=== PATIENT | male | born 1955 | race Caucasian/White ===

== ENCOUNTER → 2016-09-12 | Outpatient (CLI) | payer OTHER ==
[2016-09-12 10:16] LABS: MEAN CORPUSCULAR HEMOGLOBIN 26.9 pg (27.0-33.0); MEAN CORPUSCULAR HGB CONC 31.8 g/dl (32.0-36.5); MEAN CORPUSCULAR VOLUME 84.5 fl (80.0-96.0); RED CELL DISTRIBUTION WIDTH 12.9 % (11.5-14.5); WHITE BLOOD COUNT 6.4 K/mm3 (4.0-10.0)
[2016-09-12 10:59] LABS: ALBUMIN 3.6 GM/DL (3.2-5.2); ALBUMIN/GLOBULIN RATIO 1.29 (1.00-1.93); ALKALINE PHOSPHATASE 60 U/L (45-117); ALT/SGPT 27 U/L (12-78); ANION GAP 6 MEQ/L (8-16); AST/SGOT 10 U/L (15-37); BILIRUBIN,TOTAL 0.3 MG/DL (0.2-1.0); BLOOD UREA NITROGEN 17 MG/DL (7-18); CALCIUM LEVEL 8.6 MG/DL (8.8-10.2); CARBON DIOXIDE LEVEL 27 MEQ/L (21-32); CHLORIDE LEVEL 108 MEQ/L (98-107); CHOLESTEROL LEVEL 179 MG/DL (<200); CREATININE FOR GFR 0.91 MG/DL (0.70-1.30); GLOMERULAR FILTRATION RATE > 60.0 (>49); GLUCOSE, FASTING 110 MG/DL (80-110); POTASSIUM SERUM 4.7 MEQ/L (3.5-5.1); SODIUM LEVEL 141 MEQ/L (136-145); TOTAL PROTEIN 6.4 GM/DL (6.4-8.2); TRIGLYCERIDES LEVEL 89 MG/DL (<150)
--- NOTE | 2016-09-12 11:10 | REP ---
PA and lateral chest: Comparisons 09/04/2015. The lung liu are clear. The cardiac size is normal The marcelino, mediastinum, and bony thorax are unremarkable. Impression: Negative PA and lateral chest. There is no interval change. Signed by Lai Blue MD 09/12/2016 11:02 A
--- NOTE | 2016-09-12 17:12 | ECGEPIP ---
Stationary ECG Study [facility] Test Date: 2016-09-12 Pat Name: GIOVANI JAMES Department: Room: - Gender: M Flight Hostess: FAVIOLA : 1955 Requested By: Patel Thurston Order Number: [id number] Reading MD: Arthur Garcia Measurements Intervals Smock Rate: 58 P: 20 NH: 199 QRS: 50 QRSD: 114 T: 48 QT: 377 QTc: 372 Interpretive Statements SINUS BRADYCARDIA MODERATE INTRAVENTRICULAR CONDUCTION DELAY Nonspecific ST abnormalities Electronically Signed On 09-12-2016 17:11:45 EDT by Arthur Garcia
== END ==
LOC: M LAB 09:46
PROVIDERS: ATTEND Family Medicine
DX: I10 Essential (primary) hypertension (principal)

== ENCOUNTER 2016-10-12 06:37 | Inpatient (IN) | payer OTHER ==
[~2016-10-12] VITALS: Ht 180.3 cm; Wt 95.0 kg
[2016-10-12] MEDS ORDERED: LISI10TA4 PO (07:00)
[2016-10-12] MEDS ORDERED: HYDR-3716 PO (07:00)
[2016-10-12] MEDS ORDERED: OMEP20CA3 PO (07:00)
[2016-10-12] MEDS ORDERED: CLEO300C2 PO (07:00)
[2016-10-12] MEDS ORDERED: PANTOPRAZOLE 40MG INJ (PROTONIX) (C9113) IV ONE (07:15)
[2016-10-12] MEDS ORDERED: KETOROLAC 30 MG/ML VIAL (J1885) IV ONE (07:15)
[2016-10-12] MEDS ORDERED: dexameTHASONE 20 MG/5 ML VIAL (J1100) IV ONE (07:15)
[2016-10-12] MEDS ORDERED: CLINDAMYCIN 600 MG in APPROPRIATE DILUENT 1 EA IV ONE (07:30)
[2016-10-12] MEDS: MORPHINE 2 MG/ML 1ML SYRINGE IV PRN ×2 (07:37→15:47)
[2016-10-12 07:50] LABS: BASO % 0.1 % (0.0-1.0); EOS % 0.5 % (0.0-3.0); LARGE UNSTAINED CELL # 0.3 K/mm3 (0.0-0.4); LARGE UNSTAINED CELL % 2.6 % (0.0-4.0); LYMPH # 0.5 K/mm3 (1.5-4.5); LYMPH % 4.8 % (24.0-44.0); MEAN CORPUSCULAR HEMOGLOBIN 28.1 pg (27.0-33.0); MEAN CORPUSCULAR HGB CONC 32.5 g/dl (32.0-36.5); MEAN CORPUSCULAR VOLUME 86.7 fl (80.0-96.0); MONO % 9.9 % (0.0-5.0); NEUTROPHILS % 82.1 % (36.0-66.0); PLATELET COUNT, AUTOMATED 207 k/mm3 (150-450); RED CELL DISTRIBUTION WIDTH 13.1 % (11.5-14.5); WHITE BLOOD COUNT 9.7 K/mm3 (4.0-10.0)
[2016-10-12 08:06] LABS: ALBUMIN 3.2 GM/DL (3.2-5.2); ALBUMIN/GLOBULIN RATIO 1.03 (1.00-1.93); ALKALINE PHOSPHATASE 54 U/L (45-117); ALT/SGPT 31 U/L (12-78); ANION GAP 9 MEQ/L (8-16); AST/SGOT 18 U/L (15-37); BILIRUBIN,DIRECT 0.2 MG/DL (0.0-0.2); BILIRUBIN,TOTAL 0.5 MG/DL (0.2-1.0); BLOOD UREA NITROGEN 12 MG/DL (7-18); CALCIUM LEVEL 8.8 MG/DL (8.8-10.2); CARBON DIOXIDE LEVEL 26 MEQ/L (21-32); CHLORIDE LEVEL 104 MEQ/L (98-107); CREATININE FOR GFR 0.94 MG/DL (0.70-1.30); GLOMERULAR FILTRATION RATE > 60.0 (>49); GLUCOSE, FASTING 117 MG/DL (80-110); SODIUM LEVEL 139 MEQ/L (136-145); TOTAL PROTEIN 6.3 GM/DL (6.4-8.2)
[2016-10-12] MEDS ORDERED: ISOVUE-370 76% 100ML VIAL (Q9967) As Ordered ONE (08:31)
[2016-10-12] MEDS ORDERED: ACETAMINOPHEN 325 MG TAB PO ONE (08:45)
--- NOTE | 2016-10-12 09:38 | REP ---
Clinical: Right-sided swelling and pain. Technique: Axial contrast enhanced images from the skull base to the thoracic inlet using 100 ml Isovue 370 intravenous contrast material with coronal and sagittal re-formations. Findings: Right-sided subcutaneous infiltration and swelling is appreciated. There is moderate to significant right oropharyngeal and parapharyngeal inflammatory swelling and infiltration including adenoid and tonsillar swelling. There is mild to moderate mass effect on the airway which otherwise remains patent. No obvious abscess or drainable collection is appreciated. However evaluation is considerably limited due to metallic streak artifact from dental amalgam. Associated right-sided adenopathy is appreciated with lymph nodes in the jugular chain measuring up to 2.1 cm. The orbits are symmetric and normal. The sinuses are clear. The skeletal structures are intact. Impression: Moderate to significant right sided oropharyngeal and parapharyngeal inflammatory changes including mass effect on the airway which remains patent. No obvious abscess or fluid collection is identified, but evaluation is somewhat limited due to significant metallic streak artifact. Signed by Moise Brown MD 10/12/2016 09:30 A
[2016-10-12] MEDS ORDERED: BACT800T5 PO (10:07)
[2016-10-12] MEDS ORDERED: MORPHINE 2 MG/ML 1ML SYRINGE IV PRN (11:30)
[2016-10-12] MEDS ORDERED: LORazepam 2 MG TAB PO PRN (11:30)
[2016-10-12] MEDS ORDERED: ONDANSETRON 4MG/2ML VIAL (J2405) IV PRN (11:30)
[2016-10-12] MEDS ORDERED: IPRATROPIUM 0.02% SOLN 0.5MG/2.5 ML NEB INH PRN (11:30)
--- NOTE | 2016-10-12 12:07 | REP ---
Clinical: congestion. Comparison: 09/12/2016 . Technique: PA and lateral. Findings: The mediastinum and cardiac silhouette are normal. The lung liu are clear and without acute consolidation, effusion, or pneumothorax. The skeletal structures are intact and normal. Impression: 1. No acute cardiopulmonary process. Signed by Moise Brown MD 10/12/2016 11:59 A
[2016-10-12] MEDS: ALBUTEROL SULFATE 2.5 MG/0.5 ML INH NEB SOLN INH SCH ×4 (12:11→23:59)
--- NOTE | 2016-10-12 12:11 | REP ---
Clinical: Right lower mandibular cellulitis. Technique: Two Panorex views. Findings: Examination is essentially normal. The mandible is intact. No cystic or osseous abnormalities are appreciated. The dentition is within normal limits Impression: Essentially normal Panorex views Signed by Moise Brown MD 10/12/2016 12:02 P
[2016-10-12] MEDS ORDERED: MULTIVITAMIN -ADULT INJECTION 10 ML, THIAMINE INJection 100 MG, FOLIC ACID 1 MG in NS 1... IV ONE (13:00)
[2016-10-12] MEDS ORDERED: LevoFLOXacin IV 500 MG in APPROPRIATE DILUENT 1 EA IV ONE (13:00)
[2016-10-12 13:50] VITALS: BP 137/70
[2016-10-12 14:00] VITALS: BP 137/70
[2016-10-12] MEDS: methylPREDNISolone INJ 125 MG/2 ML VIAL (J2930) IV SCH ×2 (14:28→21:50)
[2016-10-12 16:00] VITALS: BP 148/85
[2016-10-12] MEDS: CLINDAMYCIN 600 MG in APPROPRIATE DILUENT 1 EA IV SCH (16:14)
--- NOTE | 2016-10-12 16:37 | HPEPDOC ---
Medical History and Physical Date of Admission October 12, 2016 at 11:19 History and Physical PRIMARY CARE PROVIDER: Dr. Martins ATTENDING: Lita Ewing MD CHIEF COMPLAINT: Neck swelling HISTORY OF PRESENT ILLNESS: 61-year-old male past history of COPD, hypertension, prediabetes who presents with right facial swelling. Patient had apparently the patient for after which the right upper tooth broke. He has always dentist on Thursday who prescribed him clindamycin however patient has not started this and sotalol . Patient was told he may need a root canal. Prior to this, patient's had no specific upper respiratory tract symptoms/sore throat for which she was placed on Z-Ernie and completed. Patient was placed of fevers or chills. No nausea/vomiting. Patient denies any shortness of breath. Patient states he's able to clear his secretions. He has spoken with Dr. Preciado who will be seeing the patient on consultation. PAST MEDICAL HISTORY: As per HPI PAST SURGICAL HISTORY:Tonsillectomy SOCIAL HISTORY:H/o 1ppd tobacco abuse x 20 years, quit 11 years ago. Drinks 3-4 beers daily. No illicit drugs. FAMILY HISTORY: Non contributory ALLERGIES: Please see below. REVIEW OF SYSTEMS: HEENT: Denies sore throat/headache CARDIOVASCULAR: Denies chest pain/palpitations RESPIRATORY: Denies shortness of breath/cough GASTROINTESTINAL: denies nausea/vomiting GENITOURINARY: Denies dysuria/urinary urgency. MUSCULOSKELETAL: Denies myalgias/arthralgias NEUROLOGICAL: Denies any focal weakness HOME MEDICATIONS: Please see below. PHYSICAL EXAMINATION: Vitals: (see below) General: No acute distress, laying comfortably in bed. HEENT: Moist mucous membranes. Right facial swelling. Airway patent, although pt does have right post-pharyngeal swelling. No abscess or draining noted. Neck: No JVD or lymphadenopathy Cardiac: RRR, No murmurs Pulm: Clear to auscultation b/l. No wheezing, rhonchi Abd: NT/ND + BS Ext: No edema or cyanosis LABORATORY DATA: See below. IMAGING: CT Neck 10/12/16 Impression: Moderate to significant right sided oropharyngeal and parapharyngeal inflammatory changes including mass effect on the airway which remains patent. No obvious abscess or fluid collection is identified, but evaluation is somewhat limited due to significant metallic streak artifact. CXR negative for acute pulm dz. MICROBIOLOGY: Please see below. ASSESSMENT/PLAN: 1. Moderate to significant right sided oropharyngeal and parapharyngeal swelling. Improved with IV antibiotics and steroids. Patient will be continued on IV clindamycin. Patient also placed on IV Levaquin as he does have a significant history of alcohol use. Continue steroids. We'll continue to monitor closely in PCU. Oral surgeon has been consulted. 2. COPD- stable. Continue nebs 3. Hypertension- controlled 4. Prediabetes 5. Alcohol use- cessation counseling. WA protocol. Banana bag. DVT prophy - enoxaparin. Vital Signs Vital Signs Date Time Temp Pulse Resp B/P (MAP) Pulse Ox O2 Delivery O2 Flow Rate FiO2 10/12/16 16:00 98.3 91 12 148/85 (106) 99 Room Air Laboratory Data Labs 24H Laboratory Tests 2 10/12/16 07:29: White Blood Count 9.7, Red Blood Count 4.88, Hemoglobin 13.7L, Hematocrit 42.3, Mean Corpuscular Volume 86.7, Mean Corpuscular Hemoglobin 28.1, Mean Corpuscular Hemoglobin Concent 32.5, Red Cell Distribution Width 13.1, Platelet Count 207, Neutrophils (%) (Auto) 82.1H, Lymphocytes (%) (Auto) 4.8L, Monocytes (%) (Auto) 9.9H, Eosinophils (%) (Auto) 0.5, Basophils (%) (Auto) 0.1, Neutrophils # (Auto) 8.0H, Lymphocytes # (Auto) 0.5L, Monocytes # (Auto) 1.0H, Eosinophils # (Auto) 0.0, Basophils # (Auto) 0.0, Large Unclassified Cells % 2.6 , Large Unclassified Cells # 0.3, Anion Gap 9, Glomerular Filtration Rate > 60.0 , Calcium Level 8.8, Aspartate Amino Transf (AST/SGOT) 18, Alanine Aminotransferase (ALT/SGPT) 31, Alkaline Phosphatase 54, Total Bilirubin 0.5, Direct Bilirubin 0.2, Total Protein 6.3L, Albumin 3.2, Albumin/Globulin Ratio 1.03 CBC/BMP Laboratory Tests 10/12/16 07:29 Red Blood Count 4.88, Mean Corpuscular Volume 86.7, Mean Corpuscular Hemoglobin 28.1, Mean Corpuscular Hemoglobin Concent 32.5, Red Cell Distribution Width 13.1 , Neutrophils (%) (Auto) 82.1 H, Lymphocytes (%) (Auto) 4.8 L, Monocytes (%) ( Auto) 9.9 H, Eosinophils (%) (Auto) 0.5, Basophils (%) (Auto) 0.1, Neutrophils # (Auto) 8.0 H, Lymphocytes # (Auto) 0.5 L, Monocytes # (Auto) 1.0 H, Eosinophils # (Auto) 0.0, Basophils # (Auto) 0.0 Microbiology Microbiology 10/12/16 Blood Culture, Received Pending 10/12/16 Blood Culture, Received Pending Home Medications Scheduled Clindamycin Hcl (Cleocin) 300 Mg Cap, 300 MG PO Q6H STARTED 10/09 FOR 7 DAYS Lisinopril (Lisinopril) 10 Mg Tab, 10 MG PO DAILY Omeprazole (Omeprazole) 20 Mg Cap, 20 MG PO DAILY Scheduled PRN Acetaminophen/Hydrocodone (Hydrocodone/Acetaminophen 7.5-325 mg) 1 Tab Tab, 1 TAB PO Q4H PRN for PAIN Allergies Coded Allergies: Amoxicillin (Verified Allergy, Unknown, 10/12/16) Cefuroxime (Verified Allergy, Unknown, 10/12/16) Clavulanic Acid (Verified Allergy, Unknown, 10/12/16) Penicillins (Verified Allergy, Unknown, 10/12/16) LITA EWING MD October 12, 2016 16:37
[2016-10-12] MEDS: KETOROLAC 30 MG/ML VIAL (J1885) IV SCH (18:01)
[2016-10-12] MEDS ORDERED: BISACODYL 10 MG SUPP PR PRN (19:00)
[2016-10-12 20:00] VITALS: BP 137/83
[2016-10-12] MEDS: MORPHINE 4 MG/ML 1ML SYRINGE IV PRN ×2 (20:18→20:50)
[2016-10-12] MEDS ORDERED: LORazepam 2 MG/ML VIAL (J2060) IV PRN (20:45)
[2016-10-12] MEDS ORDERED: ACETAMINOPHEN 650 MG SUPP PR ONE (21:30)
[2016-10-12] MEDS ORDERED: ACETAMINOPHEN 650 MG SUPP PR PRN (21:30)
[2016-10-12] MEDS: ENOXAPARIN 40 MG/0.4 ML SYRINGE (J1650) SC SCH (21:51)
[2016-10-13] VITALS (11 sets, daily range): BP systolic 112–142; BP diastolic 64–82
[2016-10-13] MEDS: KETOROLAC 30 MG/ML VIAL (J1885) IV SCH ×4 (00:07→18:00)
[2016-10-13] MEDS: methylPREDNISolone INJ 125 MG/2 ML VIAL (J2930) IV SCH ×2 (03:20→08:21)
[2016-10-13] MEDS: ALBUTEROL SULFATE 2.5 MG/0.5 ML INH NEB SOLN INH SCH ×5 (03:29→20:07)
[2016-10-13] MEDS: MORPHINE 4 MG/ML 1ML SYRINGE IV PRN ×3 (03:34→11:36)
[2016-10-13] MEDS ORDERED: LIDOCAINE W/EPINEPHRINE 1% 20ML VIAL As Ordered ONE (07:36)
[2016-10-13] MEDS: CLINDAMYCIN 600 MG in APPROPRIATE DILUENT 1 EA IV SCH ×5 (08:21→21:40)
[2016-10-13] MEDS ORDERED: LevoFLOXacin IV 500 MG in APPROPRIATE DILUENT 1 EA IV SCH (09:00)
[2016-10-13] MEDS ORDERED: MIDAZOLAM INJ 2 MG/2 ML VIAL (J2250) As Ordered ONE (13:58)
[2016-10-13] MEDS ORDERED: fentaNYL 100 MCG/2 ML INJECTION (J3010) As Ordered ONE ×2 (13:58→14:37)
[2016-10-13] MEDS ORDERED: LIDOCAINE 2% W/ EPINEPHRINE 1.7 ML DENTAL INJ As Ordered ONE (14:16)
[2016-10-13] MEDS ORDERED: PROPOFOL 200 MG/20 ML VIAL As Ordered ONE (14:37)
[2016-10-13] MEDS ORDERED: SUCCINYLCHOLINE 100 MG/5 ML SYRINGE (J0330) As Ordered ONE (14:39)
[2016-10-13] MEDS ORDERED: dexameTHASONE 4 MG/ML 1ML VIAL (J1100) As Ordered ONE (14:39)
[2016-10-13] MEDS ORDERED: ONDANSETRON 4MG/2ML VIAL (J2405) As Ordered ONE (14:39)
[2016-10-13] MEDS ORDERED: ROCURONIUM BROMIDE 50 MG/5 ML VIAL As Ordered ONE (14:39)
[2016-10-13] MEDS ORDERED: fentaNYL 100 MCG/2 ML INJECTION (J3010) IV PRN (15:15)
[2016-10-13] MEDS ORDERED: ONDANSETRON 4MG/2ML VIAL (J2405) IV PRN (15:15)
[2016-10-13] MEDS ORDERED: METOCLOPRAMIDE INJ 10MG/2ML VIAL (J2765) IV PRN (15:15)
[2016-10-13] MEDS ORDERED: PERCOCET 5MG/325MG TAB PO PRN (15:15)
[2016-10-13] MEDS ORDERED: MORPHINE 2 MG/ML 1ML SYRINGE IV PRN (15:15)
[2016-10-13] MEDS ORDERED: LR 1,000 ML IV SCH (15:15)
--- NOTE | 2016-10-13 15:52 | IPNPDOC ---
Text Note Date of Service The patient was seen on 10/13/16. NOTE Subjective: Pt states swelling is improving. PHYSICAL EXAMINATION: Vitals: (see below) General: No acute distress, laying comfortably in bed. HEENT: Moist mucous membranes. Right facial swelling. Airway patent, although pt does have right post-pharyngeal swelling. No abscess or draining noted. Neck: No JVD or lymphadenopathy Cardiac: RRR, No murmurs Pulm: Clear to auscultation b/l. No wheezing, rhonchi Abd: NT/ND + BS Ext: No edema or cyanosis LABORATORY DATA: See below. IMAGING: CT Neck 10/12/16 Impression: Moderate to significant right sided oropharyngeal and parapharyngeal inflammatory changes including mass effect on the airway which remains patent. No obvious abscess or fluid collection is identified, but evaluation is somewhat limited due to significant metallic streak artifact. CXR negative for acute pulm dz. MICROBIOLOGY: Please see below. ASSESSMENT/PLAN: 1. Right Mandibular abscess s/p extraction tooth #31. Moderate to significant right sided oropharyngeal and parapharyngeal swelling. Improved with IV antibiotics and steroids. Airway patent. Patient will be continued on IV clindamycin. Continue steroids. We'll continue to monitor closely in PCU. Oral surgeon on board. 2. COPD- stable. Continue nebs 3. Hypertension- controlled 4. Prediabetes 5. Alcohol use- cessation counseling. WA protocol. s/p banana bag Cont to closely monitor in PCU. VS,Fishbone, I+O VS, Fishbone, I+O Vital Signs Date Time Temp Pulse Resp B/P (MAP) Pulse Ox O2 Delivery O2 Flow Rate FiO2 10/13/16 15:40 97.5 76 16 115/66 (82) 97 Room Air 10/13/16 15:30 2 I&O- Last 24 Hours up to 6 AM 10/13/16 05:59 Intake Total 880 ml Output Total 300 ml Balance 580 ml LITA WANG MD October 13, 2016 15:52
[2016-10-13] MEDS: LR 1,000 ML IV SCH (17:01)
--- NOTE | 2016-10-13 19:31 | RO ---
DATE OF PROCEDURE: 10/13/2016 PREOPERATIVE DIAGNOSIS: Right mandibular abscess. POSTOPERATIVE DIAGNOSIS: Right mandibular abscess. PROCEDURE: Extraction of tooth 31. SURGEON: Rene Monsivais DMD RN FACULTY: ANESTHESIA: ESTIMATED BLOOD LOSS: 5 mL. SPECIMENS: Teeth COMPLICATIONS: None. The rest of the this dictation will be completed in [facility]
[2016-10-13] MEDS: ENOXAPARIN 40 MG/0.4 ML SYRINGE (J1650) SC SCH (20:52)
[2016-10-14] VITALS (7 sets, daily range): BP systolic 112–133; BP diastolic 68–74
[2016-10-14] MEDS: KETOROLAC 30 MG/ML VIAL (J1885) IV SCH ×5 (00:09→23:37)
[2016-10-14] MEDS: HYDROmorphone 2 MG TAB PO PRN ×6 (02:50→22:37)
[2016-10-14] MEDS: LR 1,000 ML IV SCH ×3 (02:51→21:36)
[2016-10-14] MEDS: CLINDAMYCIN 600 MG in APPROPRIATE DILUENT 1 EA IV SCH ×4 (03:00→21:36)
[2016-10-14] MEDS: ALBUTEROL SULFATE 2.5 MG/0.5 ML INH NEB SOLN INH SCH ×8 (04:00→23:11)
[2016-10-14] MEDS: MORPHINE 4 MG/ML 1ML SYRINGE IV PRN ×4 (10:21→23:51)
--- NOTE | 2016-10-14 16:07 | IPN ---
DATE: 10/14/2016 SUBJECTIVE: Patient is seen and examined in the room today. Patient stated he still feels discomfort at the right face. He feels there is some drainage from the previous abscess site. But he is able to tolerate oral liquids well without any problem and patient has no difficulty breathing. Patient tolerated the tooth extraction well. OBJECTIVE: VITAL SIGNS: Temperature 99.3, pulse 81, respiration rate 20, blood pressure 112/68, pulse oximetry 94% in room air. GENERAL: No sign of acute distress. Alert and oriented times three. HEENT: Normocephalic, atraumatic. Extraocular motors grossly intact. CARDIOVASCULAR: Positive S1, S2, regular rate. LUNGS: Clear to auscultation bilaterally. ABDOMEN: Soft, nontender, nondistended. Bowel sounds present. No rebound. No guarding. EXTREMITIES: No edema. No sign of cyanosis. C-reactive protein is 18.1. Dental abscess culture is pending. ASSESSMENT AND PLAN: 1. Right mandibular abscess status post tooth extraction. Culture is pending. Patient is on IV clindamycin and IV steroids. Patient's airway is patent and patient is tolerating a liquid diet. We appreciate further input from the oral surgeon. 2. Chronic obstructive pulmonary disease (COPD). Currently patient does not require any oxygen support. No exacerbation. Continue nebulizers as needed. 3. Hypertension. Blood pressure in satisfactory range. 4. History of alcohol use. Patient is on thiamine, folic acid, and multivitamin. Patient has Ativan as needed. 5. Deep venous thrombosis (DVT) prophylaxis. Patient is on Lovenox.
[2016-10-14] MEDS: THIAMINE 100 MG TAB PO SCH (16:27)
[2016-10-14] MEDS: MULTIVITAMINS/MINERALS THERAP 1 TAB PO SCH (16:28)
[2016-10-14] MEDS: FOLIC ACID 1 MG TAB PO SCH (16:28)
[2016-10-14] MEDS: ENOXAPARIN 40 MG/0.4 ML SYRINGE (J1650) SC SCH (21:35)
[2016-10-15] VITALS: BP 172/96
[2016-10-15] MEDS ORDERED: ACETAMINOPHEN TAB 650MG DOSE (2X325MG) PO PRN (00:15)
[2016-10-15] MEDS: methylPREDNISolone INJ 125 MG/2 ML VIAL (J2930) IV SCH ×3 (00:20→12:25)
[2016-10-15] MEDS: MORPHINE 4 MG/ML 1ML SYRINGE IV PRN (03:25)
[2016-10-15 04:00] VITALS: BP 135/84
[2016-10-15] MEDS: CLINDAMYCIN 600 MG in APPROPRIATE DILUENT 1 EA IV SCH ×2 (04:11→10:04)
[2016-10-15] MEDS: HYDROmorphone 2 MG TAB PO PRN (04:50)
[2016-10-15] MEDS: KETOROLAC 30 MG/ML VIAL (J1885) IV SCH ×2 (05:52→12:25)
[2016-10-15 07:28] LABS: MEAN CORPUSCULAR HEMOGLOBIN 27.2 pg (27.0-33.0); MEAN CORPUSCULAR HGB CONC 31.4 g/dl (32.0-36.5); MEAN CORPUSCULAR VOLUME 86.5 fl (80.0-96.0); RED CELL DISTRIBUTION WIDTH 13.4 % (11.5-14.5); WHITE BLOOD COUNT 13.9 K/mm3 (4.0-10.0)
[2016-10-15 07:45] LABS: ANION GAP 8 MEQ/L (8-16); BLOOD UREA NITROGEN 18 MG/DL (7-18); CALCIUM LEVEL 8.8 MG/DL (8.8-10.2); CARBON DIOXIDE LEVEL 26 MEQ/L (21-32); CHLORIDE LEVEL 105 MEQ/L (98-107); CREATININE FOR GFR 0.68 MG/DL (0.70-1.30); GLOMERULAR FILTRATION RATE > 60.0 (>49); GLUCOSE, FASTING 165 MG/DL (80-110); POTASSIUM SERUM 4.5 MEQ/L (3.5-5.1); SODIUM LEVEL 139 MEQ/L (136-145)
[2016-10-15 08:00] VITALS: BP_SYST 131; BP_SYST 156; BP_DIAS 77; BP_DIAS 79
[2016-10-15] MEDS: ALBUTEROL SULFATE 2.5 MG/0.5 ML INH NEB SOLN INH SCH ×2 (09:01→11:56)
[2016-10-15] MEDS: FOLIC ACID 1 MG TAB PO SCH (09:19)
[2016-10-15] MEDS: MULTIVITAMINS/MINERALS THERAP 1 TAB PO SCH (09:20)
[2016-10-15] MEDS: THIAMINE 100 MG TAB PO SCH (09:20)
[2016-10-15] MEDS: LR 1,000 ML IV SCH (10:03)
[2016-10-15] MEDS ORDERED: ACET65TA PO (10:36)
[2016-10-15] MEDS ORDERED: PERC10TA17 PO (10:36)
[2016-10-15] MEDS ORDERED: CLEO300C2 PO (10:36)
[2016-10-15 12:00] VITALS: BP 130/90
--- NOTE | 2016-10-15 17:10 | DSES ---
DATE OF ADMISSION: 10/12/2016 DATE OF DISCHARGE: 10/15/2016 PRIMARY CARE PROVIDER: Dr. Bertrand Martins CONSULTANTS: Oral surgery, Dr. Rene Monsivais PROCEDURES: Tooth #13 extraction. ADMISSION/DISCHARGE DIAGNOSES: 1. Right mandibular abscess. 2. Chronic obstructive pulmonary disease. 3. Hypertension. 4. History of alcohol abuse. HOSPITALIZATION COURSE: The patient is a 61-year-old male who presented to [facility] on 10/12/2016 for neck swelling. The patient started having worsening right facial swelling after his right upper tooth breakage. CT of the neck with contrast was performed and oral surgery, Dr. Monsivais, was consulted. Empirically, the patient was started on IV clindamycin. On 10/13/2016, the patient had a tooth extraction with the diagnosis of right mandibular abscess. After the procedure, the patient remained in the progressive care unit (PCU) for monitoring. Later, the patient is able to maintain a patent airway and the patient is also able to tolerate a liquid diet, then the patient is downgraded to the medical/surgical floor for pain control. The patient is also being followed by Dr. Monsivais and later is cleared by Dr. Monsivais for discharge with recommendation to continue clindamycin. On 10/15/2016, the patient is discharged home with a supply of clindamycin and short-term pain medications. The patient is instructed to followup with Dr. Monsivais within one week and the patient is instructed to followup with primary care provider within one week. OBJECTIVE: VITAL SIGNS: Temperature 97.4, pulse is 57, respiratory rate 16, blood pressure is 131/79, pulse oximetry is 96% on room air. LABORATORY DATA: WBC is 13.9, hemoglobin 11.7, hematocrit 37.4, platelet count is 282. Sodium is 139, potassium 4.5, chloride is 105, carbon dioxide 26, BUN 18, creatinine 0.68, GFR greater than 60, fasting glucose 165, calcium is 8.8, C-reactive protein is 15.3. Blood cultures negative after 72 hours times two sets. Abscess cultures show normal asuncion present, anaerobe cultures pending. CT of the neck with contrast shows moderate to significant right-sided oropharyngeal and parapharyngeal inflammatory changes including mass effect of the airway which remains patent. No obvious abscess or fluid collection is identified but evaluation is somewhat limited due to significant metallic streak artifact. Chest x-ray shows no acute cardiopulmonary processes. DISCHARGE MEDICATIONS: - Tylenol 650 mg by mouth every four hours as needed for seven days - Percocet 10/325 mg one tablet by mouth every four hours as needed for severe pain, five-day course was given, maximum daily dosage is six, #30 pills given - clindamycin 300 mg by mouth every six hours for seven more days - lisinopril 10 mg by mouth daily - omeprazole 20 mg by mouth daily DISCHARGE INSTRUCTIONS: Discharge home. Activity as tolerated. Diet as tolerated. The patient should followup with Dr. Monsivais within one week. The patient should followup with Dr. Bertrand Martins within one week. DISCHARGE CONDITION: Stable. DISCHARGE TIME: Greater than 30 minutes.
== END 2016-10-15 12:55 | disposition home or self-care (01) | DRG 159 ==
LOC: M ED 07:22 → M ED INP 11:19 → M PCU 13:50 → M PED 10-14 12:33
PROVIDERS: ADMIT Internal Medicine; ATTEND Internal Medicine
PROC: 0CTW0Z0 Resection of Upper Tooth, Single, Open Approach (ICD-10-PCS; principal; 2016-10-13 08:00)
DX: K12.2 Cellulitis and abscess of mouth (principal); J44.9 Chronic obstructive pulmonary disease, unspecified; I10 Essential (primary) hypertension; Z79.899 Other long term (current) drug therapy; Z87.891 Personal history of nicotine dependence; F10.10 Alcohol abuse, uncomplicated; Z88.0 Allergy status to penicillin; Z88.8 Allergy status to other drugs, medicaments and biological substances

== ENCOUNTER 2016-10-18 10:05 | Emergency (ER) | payer OTHER ==
[~2016-10-18] VITALS: Ht 180.3 cm; Wt 96.2 kg
[~2016-10-18 10:05] MED LIST: ACET65TA PO; BACT800T5 PO; CLEO300C2 PO; HYDR-3716 PO; LISI10TA4 PO; OMEP20CA3 PO; PERC10TA17 PO
[2016-10-18] MEDS ORDERED: methylPREDNISolone INJ 125 MG/2 ML VIAL (J2930) IV ONE (10:30)
[2016-10-18] MEDS ORDERED: cefTRIAXone SOD 1 GM in D5W MINI-BAG PLUS 50 ML IV ONE (10:30)
--- NOTE | 2016-10-18 10:32 | ED PDOC ---
Post-Departure Follow-Up PT AND PRESENT TO THE ED TODAY STATING THE PT WAS HAVING SOME DENTAL PAIN LAST WEEK AND WAS SEEN IN THE ED FOR THIS. HE WAS ADMITTED AT THAT TIME (10/12/16 ), HAD A TOOTH PULLED (BY DR. BLANDON) AND "INSURANCE WOULDN'T COVER IT ANYMORE SO I WAS DISCHARGED ON 10/15/16. STATES THAT NIGHT AND LAST NIGHT, HIS PAIN WAS WORSE AND HE WAS SEEN BY HIS PCP, DR. ZAPIEN, IN THE OFFICE YESTERDAY AND HAD ROCEPHIN 1GRAM IM. HE STATES TODAY IS HE FEELING BETTER AND HAS A PRESCRIPTION WITH HIM AND THE BOTTLE OF ROCEPHIN STATING HE WAS TOLD TO HAVE 4 DAYS OF ROCEPHIN 1GRAM IM AND DR. PATEL IS FOLLOWING UP WITH HIM IN THE OFFICE ON THURSDAY , 10/21/16PT STATES HE IS FEELING MUCH BETTER TODAY THAN HE WAS YESTERDAY PRIOR TO THE INJECTION. PT DENIES DIFFICULTY SWALLOWING AT THIS TIME. RNOIT CLINE PA-C October 18, 2016 10:32
[2016-10-18 11:34] VITALS: BP 137/84
== END 2016-10-18 11:35 | disposition home or self-care (01) ==
LOC: M ED 10:22
DX: L03.90 Cellulitis, unspecified (principal); I10 Essential (primary) hypertension; Z87.891 Personal history of nicotine dependence; Z79.899 Other long term (current) drug therapy; Z88.0 Allergy status to penicillin; Z88.8 Allergy status to other drugs, medicaments and biological substances; Z88.1 Allergy status to other antibiotic agents
CPT/HCPCS: 96374; 96375; 99283; J0696; J2930

== ENCOUNTER 2016-10-19 10:35 | Emergency (ER) | payer OTHER ==
[~2016-10-19] VITALS: Ht 180.3 cm; Wt 95.3 kg
[2016-10-19] MEDS ORDERED: cefTRIAXone SOD 1 GM VIAL (J0696) IM ONE (11:15)
[2016-10-19 11:55] VITALS: BP 133/72
[2016-10-20] MEDS ORDERED: IBUP600T26 PO (03:01)
[2016-10-20] MEDS ORDERED: CLEO300C2 PO (07:46)
[2016-10-20] MEDS ORDERED: PERC10TA17 PO (07:46)
[2016-10-20] MEDS ORDERED: IBUP60TA PO (07:46)
== END 2016-10-19 11:58 | disposition home or self-care (01) ==
LOC: M ED 11:15
DX: K04.7 Periapical abscess without sinus (principal); Z88.0 Allergy status to penicillin; Z88.8 Allergy status to other drugs, medicaments and biological substances; Z88.1 Allergy status to other antibiotic agents; Z79.899 Other long term (current) drug therapy
CPT/HCPCS: 96372; 99282; J0696

== ENCOUNTER 2016-10-20 02:49 | Inpatient (IN) | payer OTHER ==
[~2016-10-20] VITALS: Ht 180.3 cm; Wt 79.9 kg
[2016-10-20] MEDS ORDERED: IBUP600T26 PO (03:01)
[2016-10-20] MEDS ORDERED: CETACAINE SPRAY 20GM (FLOOR STOCK) TOP ONE (03:30)
[2016-10-20] MEDS ORDERED: BUPIVACAINE/EPIN 0.5% 30 ML VIAL XX ONE (03:30)
[2016-10-20] MEDS ORDERED: BUPIVACAINE HCL 0.5% 30 ML VIAL SC ONE (03:45)
[2016-10-20] MEDS ORDERED: LIDOCAINE W/EPINEPHRINE 1% 20ML VIAL SC ONE ×2 (03:45→08:15)
[2016-10-20] MEDS ORDERED: CLINDAMYCIN 900 MG in APPROPRIATE DILUENT 1 EA IV ONE (04:00)
[2016-10-20] MEDS ORDERED: HYDROmorphone HCL 1 MG/ML SYRINGE (J1170) IV ONE (04:00)
[2016-10-20 04:23] LABS: BASO % 0.3 % (0.0-1.0); EOS # 0.1 K/mm3 (0.0-0.50); EOS % 0.7 % (0.0-3.0); LARGE UNSTAINED CELL # 0.2 K/mm3 (0.0-0.4); LARGE UNSTAINED CELL % 1.9 % (0.0-4.0); LYMPH # 1.9 K/mm3 (1.5-4.5); LYMPH % 15.4 % (24.0-44.0); MEAN CORPUSCULAR HGB CONC 31.4 g/dl (32.0-36.5); MEAN CORPUSCULAR VOLUME 86.1 fl (80.0-96.0); MONO # 0.7 K/mm3 (0.0-0.8); MONO % 6.4 % (0.0-5.0); NEUTROPHILS # 8.3 K/mm3 (1.8-7.7); NEUTROPHILS % 75.4 % (36.0-66.0); PLATELET COUNT, AUTOMATED 428 k/mm3 (150-450); RED CELL DISTRIBUTION WIDTH 13.4 % (11.5-14.5)
[2016-10-20 04:30] LABS: INR 1.03
[2016-10-20 04:37] LABS: ANION GAP 6 MEQ/L (8-16); BLOOD UREA NITROGEN 13 MG/DL (7-18); CALCIUM LEVEL 8.4 MG/DL (8.8-10.2); CARBON DIOXIDE LEVEL 28 MEQ/L (21-32); CHLORIDE LEVEL 108 MEQ/L (98-107); CREATININE FOR GFR 0.75 MG/DL (0.70-1.30); GLOMERULAR FILTRATION RATE > 60.0 (>49); GLUCOSE, FASTING 107 MG/DL (80-110); POTASSIUM SERUM 4.2 MEQ/L (3.5-5.1); SODIUM LEVEL 142 MEQ/L (136-145)
[2016-10-20] MEDS ORDERED: ISOVUE-370 76% 100ML VIAL (Q9967) As Ordered ONE (04:40)
--- NOTE | 2016-10-20 05:50 | REPUSA ---
CLINICAL HISTORY: Suspected abscess formation. TECHNIQUE: Multiple axial CT images were obtained through the neck with IV contrast material. MPR cor onal and sagittal sequences were obtained. COMMENTS: Mild hypertrophy of the adenoids. Enlarged right palatine tonsil. Surrounding inflammatory soft tissue stranding. Adjacent 1.8 cm abscess formation. Soft tissue emphysema in the right pharyngeal space. Mildly enlarged right cervical lymph nodes with the largest measuring 1.3 cm. Inflammatory fat stranding surrounding the right submandibular gland. The piriform sinuses are normal. There is no supra or infraglottic laryngeal mass. The proximal trach ea is normal. There is no paravertebral soft tissue mass. The remaining salivary glands are normal. Limited images through the posterior fossa demonstrate no evidence for tonsilar herniation. Evaluation of the visualized lung apices reveals no evidence for abnormality. IMPRESSION: Tonsillitis. Right peritonsillar abscess formation. Soft tissue emphysema in the right parapharyngeal space. Recent intervention/incision versus gas-form ing infection. Edema and mass effect on the pharyngeal air passage without airway narrowing. Thank you for your kind referral of this patient.
[2016-10-20] MEDS ORDERED: dexameTHASONE 20 MG/5 ML VIAL (J1100) IV ONE (06:15)
[2016-10-20] MEDS ORDERED: CLEO300C2 PO (07:46)
[2016-10-20] MEDS ORDERED: IBUP60TA PO (07:46)
[2016-10-20] MEDS ORDERED: PERC10TA17 PO (07:46)
--- NOTE | 2016-10-20 08:08 | ER ---
DATE OF CONSULTATION: 10/20/2016 CHIEF COMPLAINT: Oropharyngeal pain. HISTORY OF PRESENT ILLNESS: Tera Keita is a 71-year-old man who was recently admitted to the hospital for dental abscess. During the hospitalization, patient had extraction of tooth #31. This was done on 10/13/2016. Patient was then discharged from the hospital on 10/15/2016. The patient states that since discharge, he has had fluctuating pain. He has pain when he swallows. He has been able to tolerate clear liquids but not much else. He has had a couple of chills but he has not had any fevers. Patient presented to his primary care physician on Thursday with pain. Patient was given an antibiotic injection and then advised to come into the emergency room on Thursday, Thursday and Thursday for additional injection of antibiotic. Patient did have his antibiotic injection on Thursday and Thursday, and today he states that the pain is becoming unbearable. He has intermittent drainage from his mouth which he is spitting into a cup. PAST MEDICAL HISTORY: Patient states that he has pre-diabetes and hypertension. PAST SURGICAL HISTORY: Patient has had the dental extraction as well as an adenotonsillectomy when he was a child. MEDICATIONS: Patient states that he is on antihypertensive at home. ALLERGIES: PENICILLIN. REVIEW OF SYSTEMS: As above, patient is not having any trouble breathing. No cough. PHYSICAL EXAMINATION: Temperature 97.1, pulse 54, respiratory rate 20, blood pressure 147/86. General: Patient is in no acute distress. Voice is normal. There is no stridor. Patient is not drooling. Head: Patient is normocephalic. Face: No gross facial lesions. Cranial nerves intact bilaterally. I do not appreciate any swelling of the right face on examination. Oral cavity/oropharynx: Patient is having mild trismus with an inter-incisor opening of almost 2 cm. The site of tooth extraction on the right mandible is not draining. Floor of mouth is soft. The right soft palate is markedly swollen. Neck: There is some mild submandibular swelling. It feels slightly indurated in this area. Otherwise there is no lymphadenopathy in the neck. No tenderness or masses. PROCEDURE: The right soft palate area was infiltrated with 1% lidocaine with epinephrine. An 18 gauge needle was used to attempt aspiration of any fluid collection. There was no return of any pus. I did return a very small amount of bloody fluid which was sent for culture. IMAGING: CT scan shows swelling and very early abscess formation in the right parapharyngeal area but no ryan abscess. ASSESSMENT AND PLAN: Tera Keita is a 61-year-old man status post dental extraction. He has had persistent parapharyngeal swelling and pain that has been difficult to control at home. I recommend admission for IV antibiotics, clindamycin would be appropriate choice. Patient will be admitted to the hospitalist for further management.
--- NOTE | 2016-10-20 09:39 | HPE ---
DATE OF ADMISSION: 10/20/2016 PRIMARY CARE PROVIDER: Dr. Bertrand Martins ATTENDING PHYSICIAN: Dr. Maury Hargrove PRINCIPAL DIAGNOSIS: Facial cellulitis/dental infection status post dental extraction. HISTORY: Tera Keita underwent extraction of tooth #[address] Ozzy Jurado of oral surgery on 10/13/2016 and was discharged on 10/15/2016 on clindamycin. He had increasing swelling on the right side of his face. He had a 1.8 cm right peritonsillar abscess on CT scan and underwent attempted aspiration by ENT, Dr. Quesada, today in the emergency room without return of any pus. CT scan shows swelling and early abscess formation. Recommendation was for admission for IV antibiotics. PAST MEDICAL HISTORY: Just shows hypertension, for which he is on Lisinopril 10 mg daily as an outpatient. He also takes omeprazole on an as needed basis. Past medical, social and surgical history are all unchanged from his recent admission from 10/12/2016. MEDICATIONS: - Lisinopril 10 mg daily - omeprazole 20 mg daily - clindamycin 300 mg four times a day PHYSICAL EXAMINATION: 134/78, pulse 60, respiratory rate 16, 98% oxygen saturation, 98.3 degrees. GENERAL APPEARANCE: Resting comfortably. Small right facial swelling. HEENT: Oropharynx shows right mandible extraction site with a socket that has some slightly blood tinged discharge. Right soft palate markedly swollen. Right submandibular adenopathy. No stridor. LUNGS: Clear. HEART: Regular rhythm. ABDOMEN: Soft, nontender. EXTREMITIES: No peripheral edema. Normal strength in the arms and legs. LABORATORY DATA: White count 11,000, hemoglobin 11.5. Electrolytes unremarkable. CT of the neck is summarized above. IMPRESSION AND PLAN: 1. Early right peritonsillar abscess/cellulitis. He has been seen by ENT. Recommendation was for admission to the hospitalist service. We will start IV clindamycin. Followup lab work has been ordered. 2. Hypertension. Continue Lisinopril. 3. Gastroesophageal reflux disease (GERD). Continue omeprazole.
[2016-10-20 10:45] VITALS: BP 146/84
[2016-10-20] MEDS: ENOXAPARIN 40 MG/0.4 ML SYRINGE (J1650) SC SCH (11:07)
[2016-10-20] MEDS: OMEPRAZOLE 20 MG CAP PO SCH (11:07)
[2016-10-20] MEDS: LISINOPRIL 10 MG TAB PO SCH (11:07)
[2016-10-20] MEDS: CLINDAMYCIN 600 MG in APPROPRIATE DILUENT 1 EA IV SCH ×3 (11:08→21:28)
[2016-10-20] MEDS ORDERED: ACETAMINOPHEN 500 MG TAB PO PRN (11:30)
[2016-10-20] MEDS ORDERED: NORCO, ANEXSIA 5/325MG TABLET (HYDROcodone/ACETAMINOPHEN) PO PRN (11:30)
[2016-10-20] MEDS: NORCO, ANEXSIA 5/325MG TABLET (HYDROcodone/ACETAMINOPHEN) PO PRN ×3 (11:50→20:13)
[2016-10-20 14:00] VITALS: BP 156/91
[2016-10-20 18:00] VITALS: BP 135/73
[2016-10-20 22:00] VITALS: BP 122/64
[2016-10-21] MEDS: NORCO, ANEXSIA 5/325MG TABLET (HYDROcodone/ACETAMINOPHEN) PO PRN ×6 (00:35→22:23)
[2016-10-21] MEDS: CLINDAMYCIN 600 MG in APPROPRIATE DILUENT 1 EA IV SCH ×4 (04:25→23:00)
[2016-10-21 05:52] LABS: BASO % 0.2 % (0.0-1.0); EOS % 0.4 % (0.0-3.0); LARGE UNSTAINED CELL # 0.2 K/mm3 (0.0-0.4); LARGE UNSTAINED CELL % 2.6 % (0.0-4.0); LYMPH % 22.3 % (24.0-44.0); MEAN CORPUSCULAR HEMOGLOBIN 27.3 pg (27.0-33.0); MEAN CORPUSCULAR HGB CONC 32.1 g/dl (32.0-36.5); MEAN CORPUSCULAR VOLUME 84.9 fl (80.0-96.0); MONO # 0.8 K/mm3 (0.0-0.8); MONO % 9.6 % (0.0-5.0); NEUTROPHILS # 5.3 K/mm3 (1.8-7.7); NEUTROPHILS % 64.9 % (36.0-66.0); PLATELET COUNT, AUTOMATED 421 k/mm3 (150-450); RED CELL DISTRIBUTION WIDTH 13.3 % (11.5-14.5); WHITE BLOOD COUNT 8.2 K/mm3 (4.0-10.0)
[2016-10-21 06:00] VITALS: BP 153/81
[2016-10-21 06:05] LABS: ANION GAP 4 MEQ/L (8-16); BLOOD UREA NITROGEN 12 MG/DL (7-18); CALCIUM LEVEL 8.9 MG/DL (8.8-10.2); CARBON DIOXIDE LEVEL 31 MEQ/L (21-32); CHLORIDE LEVEL 106 MEQ/L (98-107); CREATININE FOR GFR 0.88 MG/DL (0.70-1.30); GLOMERULAR FILTRATION RATE > 60.0 (>49); GLUCOSE, FASTING 105 MG/DL (80-110); POTASSIUM SERUM 3.7 MEQ/L (3.5-5.1); SODIUM LEVEL 141 MEQ/L (136-145)
[2016-10-21] MEDS: ENOXAPARIN 40 MG/0.4 ML SYRINGE (J1650) SC SCH (09:18)
[2016-10-21] MEDS: OMEPRAZOLE 20 MG CAP PO SCH (09:19)
[2016-10-21] MEDS: LISINOPRIL 10 MG TAB PO SCH (09:19)
[2016-10-21 10:00] VITALS: BP 146/89
[2016-10-21 14:00] VITALS: BP 178/97
[2016-10-21 14:15] VITALS: BP 125/70
[2016-10-21] MEDS: dexameTHASONE 4 MG/ML 1ML VIAL (J1100) IV SCH (17:31)
[2016-10-21 18:00] VITALS: BP 120/69
--- NOTE | 2016-10-21 21:29 | IPNPDOC ---
Subjective Date Seen The patient was seen on 10/21/16. Subjective Chief Complaint/HPI The patient is a 61-year-old male admitted with a reason for visit of Peritonsillar Abscess. Events since last encounter patient continues to have severe throat pain and difficulty in swallowing says has been taking clindamycin since the dental procedure 1 week ago with no improvement. Objective Physical Examination General Exam: Positive: Alert, No Acute Distress Eye Exam: Positive: PERRLA, Conjunctiva & lids normal, EOMI, Negative: Sclera icteric ENT Exam: Positive: Atraumatic, Mucous membr. moist/pink, Pharynx Normal Neck Exam: Positive: Supple, Negative: JVD, thyromegaly Chest Exam: Positive: Clear to auscultation, Normal air movement Heart Exam: Positive: Rate Normal, Regular Rhythm, Normal S1, Normal S2, Negative: Murmurs, Rubs Abdomen Exam: Positive: Normal bowel sounds, Soft, Negative: Tenderness, Hepatospenomegaly Extremity Exam: Positive: Normal pulses, Negative: Clubbing, Cyanosis, Edema Assessment /Plan Problems (1) Peritoneal abscess Status: Acute Problem Text: Iand D tried in ED nothing could be aspirated. patient on clindamycin for 1 week with not much improvement will add vancomycin for clinda resistant MRSA coverage. ENT following. (2) Hypertension Status: Chronic Problem Text: continue lisinopril Plan/VTE VTE Prophylaxis Ordered?: Yes VS, I&O, 24H, Fishbone Vital Signs/I&O Vital Signs Date Time Temp Pulse Resp B/P (MAP) Pulse Ox O2 Delivery O2 Flow Rate FiO2 10/21/16 18:17 18 10/21/16 18:00 98.8 52 120/69 (86) 97 Room Air I&O- Last 24 Hours up to 6 AM 10/21/16 06:00 Intake Total 3040 ml Output Total 3525 ml Balance -485 ml Laboratory Data 24H LABS Laboratory Tests 2 10/21/16 05:35: White Blood Count 8.2, Red Blood Count 4.20L, Hemoglobin 11.5L, Hematocrit 35.7L , Mean Corpuscular Volume 84.9, Mean Corpuscular Hemoglobin 27.3, Mean Corpuscular Hemoglobin Concent 32.1, Red Cell Distribution Width 13.3, Platelet Count 421, Neutrophils (%) (Auto) 64.9, Lymphocytes (%) (Auto) 22.3L, Monocytes (%) (Auto) 9.6H, Eosinophils (%) (Auto) 0.4, Basophils (%) (Auto) 0.2, Neutrophils # (Auto) 5.3, Lymphocytes # (Auto) 2.0, Monocytes # (Auto) 0.8, Eosinophils # (Auto) 0.0, Basophils # (Auto) 0.0, Large Unclassified Cells % 2.6 , Large Unclassified Cells # 0.2, Anion Gap 4L, Glomerular Filtration Rate > 60.0, Blood Urea Nitrogen 12, Creatinine 0.88, Sodium Level 141, Potassium Level 3.7, Chloride Level 106, Carbon Dioxide Level 31, Calcium Level 8.9 CBC/BMP Laboratory Tests 10/21/16 05:35 Red Blood Count 4.20 L, Mean Corpuscular Volume 84.9, Mean Corpuscular Hemoglobin 27.3, Mean Corpuscular Hemoglobin Concent 32.1, Red Cell Distribution Width 13.3, Neutrophils (%) (Auto) 64.9, Lymphocytes (%) (Auto) 22.3 L, Monocytes (%) (Auto) 9.6 H, Eosinophils (%) (Auto) 0.4, Basophils (%) ( Auto) 0.2, Neutrophils # (Auto) 5.3, Lymphocytes # (Auto) 2.0, Monocytes # (Auto ) 0.8, Eosinophils # (Auto) 0.0, Basophils # (Auto) 0.0, Calcium Level 8.9 Microbiology Microbiology 10/20/16 Blood Culture - Preliminary, Resulted No growth after 24 hours . All specim... 10/20/16 Abscess Culture, Received Pending NIECY BRAUN MD October 21, 2016 21:29
--- NOTE | 2016-10-21 21:49 | PHACANCOPD ---
PHARMACY VANCOMYCIN DOSING Pt Demographics Demographics Patient Age:61 , Weight:79.900 , Gender: male Adjusted Body Weight Date: 10/21/16, Adjusted Body Weight: [77.14] Kg Vancomycin Vancomycin indication: PERITONSULAR ABCESS Vancomycin Target Ranges: 15-20 mcg/ml Vancomycin Load Y/N: No Load Dose Date Time Vancomycin Load Dose: Date: Time: Vancomycin Dose Date: 10/21/16. Current Vancomycin Dose: [1 GM IV Q8H] Intermittent Dosing?: No Labs Labs Laboratory Tests 10/21/16 05:35 Red Blood Count 4.20 L, Mean Corpuscular Volume 84.9, Mean Corpuscular Hemoglobin 27.3, Mean Corpuscular Hemoglobin Concent 32.1, Red Cell Distribution Width 13.3, Neutrophils (%) (Auto) 64.9, Lymphocytes (%) (Auto) 22.3 L, Monocytes (%) (Auto) 9.6 H, Eosinophils (%) (Auto) 0.4, Basophils (%) ( Auto) 0.2, Neutrophils # (Auto) 5.3, Lymphocytes # (Auto) 2.0, Monocytes # (Auto ) 0.8, Eosinophils # (Auto) 0.0, Basophils # (Auto) 0.0, Calcium Level 8.9 Micro Microbiology 10/20/16 Blood Culture - Preliminary, Resulted No growth after 24 hours . All specim... 10/20/16 Abscess Culture, Received Pending Creatinine Clearance Date:10/21/16. Creatinine Clearance: [96.2]CALCULATED. Pending Labs Vancomycin trough due Assessment and Plan Maintaining Current Dose?: Yes Reason for dose change: No Dose Change Pharmacist Note Pharmacist Note Date: 10/21/16. Pharmacist note:61 YO gentleman admitted w/peritonsular abcess currently receiving Clindamycin 600mg IV [id number] w/Vancomycin per consult being added to provide clindamycin resistant MRSA coverage.Penicillin/Cefuroxime= allergies:scr= 0.88: calculated CRCL=96.2: Will begin w/Vanco at 1 gram [id number] beginning w/2100 dose;First trough scheduled for (prior to the 4th dose):Will continue to follow levels and labs MARGARITA LOYOLA PHARMACY October 21, 2016 21:49
[2016-10-21] MEDS: VANCOMYCIN HCL 1,000 MG, VIAL MATE ADAPTER 1 EACH in D5W 250 ML IV SCH (21:51)
[2016-10-21] MEDS: CHLORHEXIDINE GLUCONATE 0.12 % 15ML UDC (PERIDEX ORAL RINSE) SSP SCH (21:51)
[2016-10-21 22:00] VITALS: BP 135/89
[2016-10-22] MEDS: dexameTHASONE 4 MG/ML 1ML VIAL (J1100) IV SCH ×3 (01:37→17:27)
[2016-10-22 02:00] VITALS: BP 137/78
[2016-10-22] MEDS: CLINDAMYCIN 600 MG in APPROPRIATE DILUENT 1 EA IV SCH ×4 (03:05→22:08)
[2016-10-22] MEDS: NORCO, ANEXSIA 5/325MG TABLET (HYDROcodone/ACETAMINOPHEN) PO PRN ×5 (03:06→22:43)
[2016-10-22] MEDS: VANCOMYCIN HCL 1,000 MG, VIAL MATE ADAPTER 1 EACH in D5W 250 ML IV SCH ×3 (04:46→20:44)
[2016-10-22 06:00] VITALS: BP 142/89
[2016-10-22 06:30] LABS: BASO % 0.1 % (0.0-1.0); EOS % 0.2 % (0.0-3.0); LARGE UNSTAINED CELL % 0.4 % (0.0-4.0); LYMPH # 0.7 K/mm3 (1.5-4.5); LYMPH % 6.9 % (24.0-44.0); MEAN CORPUSCULAR HEMOGLOBIN 27.2 pg (27.0-33.0); MEAN CORPUSCULAR HGB CONC 31.9 g/dl (32.0-36.5); MEAN CORPUSCULAR VOLUME 85.3 fl (80.0-96.0); MONO # 0.2 K/mm3 (0.0-0.8); NEUTROPHILS # 8.7 K/mm3 (1.8-7.7); NEUTROPHILS % 90.4 % (36.0-66.0); PLATELET COUNT, AUTOMATED 458 k/mm3 (150-450); RED CELL DISTRIBUTION WIDTH 13.3 % (11.5-14.5); WHITE BLOOD COUNT 9.7 K/mm3 (4.0-10.0)
[2016-10-22 06:47] LABS: ANION GAP 5 MEQ/L (8-16); BLOOD UREA NITROGEN 11 MG/DL (7-18); CALCIUM LEVEL 9.3 MG/DL (8.8-10.2); CARBON DIOXIDE LEVEL 31 MEQ/L (21-32); CHLORIDE LEVEL 104 MEQ/L (98-107); CREATININE FOR GFR 0.85 MG/DL (0.70-1.30); GLOMERULAR FILTRATION RATE > 60.0 (>49); GLUCOSE, FASTING 171 MG/DL (80-110); POTASSIUM SERUM 4.3 MEQ/L (3.5-5.1); SODIUM LEVEL 140 MEQ/L (136-145)
[2016-10-22] MEDS: CHLORHEXIDINE GLUCONATE 0.12 % 15ML UDC (PERIDEX ORAL RINSE) SSP SCH ×3 (08:22→20:44)
[2016-10-22] MEDS: ENOXAPARIN 40 MG/0.4 ML SYRINGE (J1650) SC SCH (08:23)
[2016-10-22] MEDS: OMEPRAZOLE 20 MG CAP PO SCH (08:23)
[2016-10-22] MEDS: LISINOPRIL 10 MG TAB PO SCH (08:23)
--- NOTE | 2016-10-22 11:28 | IPNPDOC ---
Subjective Date Seen The patient was seen on 10/22/16. Subjective Chief Complaint/HPI The patient is a 61-year-old male admitted with a reason for visit of Peritonsillar Abscess. Events since last encounter feels much better today, pain better, able to swallow better. Objective Physical Examination General Exam: Positive: Alert, No Acute Distress Eye Exam: Positive: PERRLA, Conjunctiva & lids normal, EOMI, Negative: Sclera icteric ENT Exam: Positive: Atraumatic, Mucous membr. moist/pink, Pharynx Normal Neck Exam: Positive: Supple, Negative: JVD, thyromegaly Chest Exam: Positive: Clear to auscultation, Normal air movement Heart Exam: Positive: Rate Normal, Regular Rhythm, Normal S1, Normal S2, Negative: Murmurs, Rubs Abdomen Exam: Positive: Normal bowel sounds, Soft, Negative: Tenderness, Hepatospenomegaly Extremity Exam: Positive: Normal pulses, Negative: Clubbing, Cyanosis, Edema Assessment /Plan Problems (1) Peritoneal abscess Status: Acute Problem Text: Iand D tried in ED nothing could be aspirated. patient on clindamycin for 1 week with not much improvement added vancomycin for clinda resistant MRSA coverage. ENT following. On steroids. (2) Hypertension Status: Chronic Problem Text: continue lisinopril Plan/VTE VTE Prophylaxis Ordered?: Yes VS, I&O, [facility]H, [facility] Vital Signs/I&O Vital Signs Date Time Temp Pulse Resp B/P (MAP) Pulse Ox O2 Delivery O2 Flow Rate FiO2 10/22/16 08:55 16 10/22/16 08:28 Room Air 10/22/16 08:23 142/89 10/22/16 06:00 97.4 51 95 I&O- Last 24 Hours up to 6 AM 10/22/16 06:00 Intake Total 3040 ml Output Total 4625 ml Balance -1585 ml Laboratory Data 24H LABS Laboratory Tests 2 10/22/16 06:14: White Blood Count 9.7, Red Blood Count 4.63, Hemoglobin 12.6L, Hematocrit 39.5L , Mean Corpuscular Volume 85.3, Mean Corpuscular Hemoglobin 27.2, Mean Corpuscular Hemoglobin Concent 31.9L, Red Cell Distribution Width 13.3, Platelet Count 458H, Neutrophils (%) (Auto) 90.4H, Lymphocytes (%) (Auto) 6.9L, Monocytes (%) (Auto) 2.0, Eosinophils (%) (Auto) 0.2, Basophils (%) (Auto) 0.1, Neutrophils # (Auto) 8.7H, Lymphocytes # (Auto) 0.7L, Monocytes # (Auto) 0.2, Eosinophils # (Auto) 0.0, Basophils # (Auto) 0.0, Large Unclassified Cells % 0.4 , Large Unclassified Cells # 0.0, Anion Gap 5L, Glomerular Filtration Rate > 60.0, Blood Urea Nitrogen 11, Creatinine 0.85, Sodium Level 140, Potassium Level 4.3, Chloride Level 104, Carbon Dioxide Level 31, Calcium Level 9.3 CBC/BMP Laboratory Tests 10/22/16 06:14 Red Blood Count 4.63, Mean Corpuscular Volume 85.3, Mean Corpuscular Hemoglobin 27.2, Mean Corpuscular Hemoglobin Concent 31.9 L, Red Cell Distribution Width 13.3, Neutrophils (%) (Auto) 90.4 H, Lymphocytes (%) (Auto) 6.9 L, Monocytes (% ) (Auto) 2.0, Eosinophils (%) (Auto) 0.2, Basophils (%) (Auto) 0.1, Neutrophils # (Auto) 8.7 H, Lymphocytes # (Auto) 0.7 L, Monocytes # (Auto) 0.2, Eosinophils # (Auto) 0.0, Basophils # (Auto) 0.0, Calcium Level 9.3 Microbiology Microbiology 10/20/16 Blood Culture - Preliminary, Resulted No Growth after 48 hours. All Specime... 10/20/16 Abscess Culture - Final, Complete NIECY BRAUN MD October 22, 2016 11:28
[2016-10-22 14:00] VITALS: BP 133/72
[2016-10-22 18:00] VITALS: BP 137/64
[2016-10-22 22:00] VITALS: BP 138/75
[2016-10-22] MEDS ORDERED: VANCOMYCIN HCL 500 MG in D5W MINI-BAG PLUS 100 ML IV ONE (23:00)
[2016-10-23] MEDS: dexameTHASONE 4 MG/ML 1ML VIAL (J1100) IV SCH (02:59)
[2016-10-23] MEDS: NORCO, ANEXSIA 5/325MG TABLET (HYDROcodone/ACETAMINOPHEN) PO PRN ×5 (03:01→22:36)
[2016-10-23] MEDS: CLINDAMYCIN 600 MG in APPROPRIATE DILUENT 1 EA IV SCH ×4 (03:01→23:00)
[2016-10-23] MEDS: VANCOMYCIN HCL 1,000 MG, VIAL MATE ADAPTER 1 EACH in D5W 250 ML IV SCH ×3 (05:21→21:01)
[2016-10-23 06:00] VITALS: BP 131/72
[2016-10-23 06:46] LABS: BASO % 0.1 % (0.0-1.0); EOS % 0.1 % (0.0-3.0); LARGE UNSTAINED CELL # 0.1 K/mm3 (0.0-0.4); LARGE UNSTAINED CELL % 0.6 % (0.0-4.0); LYMPH % 7.1 % (24.0-44.0); MEAN CORPUSCULAR HEMOGLOBIN 27.3 pg (27.0-33.0); MEAN CORPUSCULAR VOLUME 85.4 fl (80.0-96.0); MONO # 0.4 K/mm3 (0.0-0.8); NEUTROPHILS % 89.1 % (36.0-66.0); PLATELET COUNT, AUTOMATED 470 k/mm3 (150-450); RED CELL DISTRIBUTION WIDTH 13.1 % (11.5-14.5); WHITE BLOOD COUNT 13.5 K/mm3 (4.0-10.0)
[2016-10-23 06:50] LABS: ANION GAP 6 MEQ/L (8-16); BLOOD UREA NITROGEN 13 MG/DL (7-18); CALCIUM LEVEL 9.1 MG/DL (8.8-10.2); CARBON DIOXIDE LEVEL 28 MEQ/L (21-32); CHLORIDE LEVEL 104 MEQ/L (98-107); CREATININE FOR GFR 0.84 MG/DL (0.70-1.30); GLOMERULAR FILTRATION RATE > 60.0 (>49); GLUCOSE, FASTING 165 MG/DL (80-110); SODIUM LEVEL 138 MEQ/L (136-145)
[2016-10-23] MEDS: ENOXAPARIN 40 MG/0.4 ML SYRINGE (J1650) SC SCH (08:04)
[2016-10-23] MEDS: CHLORHEXIDINE GLUCONATE 0.12 % 15ML UDC (PERIDEX ORAL RINSE) SSP SCH ×3 (08:05→21:00)
[2016-10-23] MEDS: OMEPRAZOLE 20 MG CAP PO SCH (08:05)
[2016-10-23] MEDS: LISINOPRIL 10 MG TAB PO SCH (08:05)
[2016-10-23] MEDS ORDERED: ISOVUE-370 76% 100ML VIAL (Q9967) As Ordered ONE (09:06)
[2016-10-23 10:00] VITALS: BP 135/77
--- NOTE | 2016-10-23 10:32 | REP ---
CT NECK WITH CONTRAST: HISTORY: Tonsillar abscess. CONTRAST: Isovue 370, 75 mL. COMPARISON: 10/20/2016 There is minimal enlargement of the right tonsil. The tonsillar enlargement is decreased compared to the previous study. There is inferior extension into the right lateral wall of the oropharynx. There is medial extension into the soft palate. There is minimal mass effect on the upper oropharynx. There is enlargement of the right medial pterygoid, masseter, and buccinator muscles consistent with edema. Increased density is present in the right parapharyngeal and right submandibular spaces consistent with edema. Small collections of air are present in the right negotiator and buccinator spaces and right infratemporal fossa. The hypopharynx, larynx, and subglottic trachea are normal in appearance. The salivary and thyroid glands are normal. Small lymph nodes less than 1 cm in size are present in the internal jugular chains, posterior triangles and submandibular areas. Degenerative change is present in the cervical spine. The lung apices are clear. Minimal mucosal thickening is present in the right maxillary sinus. The patient is status post extraction of the second molar tooth of the right mandible. IMPRESSION: There is minimal enlargement of the right tonsil with minimal mass effect on the upper oropharynx. Edema is present in the right medial pterygoid, masseter, and buccinator muscles. Small collections of air are present in the right negotiator and buccinator spaces decreased compared to the previous study. Signed by Maxim Nugent MD 10/23/2016 10:38 A
[2016-10-23 14:00] VITALS: BP 138/94
[2016-10-23 22:00] VITALS: BP 123/75
[2016-10-24] MEDS: CLINDAMYCIN 600 MG in APPROPRIATE DILUENT 1 EA IV SCH ×2 (03:27→08:29)
[2016-10-24] MEDS: NORCO, ANEXSIA 5/325MG TABLET (HYDROcodone/ACETAMINOPHEN) PO PRN ×3 (03:27→12:01)
[2016-10-24] MEDS: VANCOMYCIN HCL 1,000 MG, VIAL MATE ADAPTER 1 EACH in D5W 250 ML IV SCH (05:40)
[2016-10-24 06:00] VITALS: BP 121/77
[2016-10-24 06:11] LABS: BASO % 0.3 % (0.0-1.0); EOS # 0.1 K/mm3 (0.0-0.50); EOS % 0.8 % (0.0-3.0); LARGE UNSTAINED CELL # 0.2 K/mm3 (0.0-0.4); LARGE UNSTAINED CELL % 1.4 % (0.0-4.0); LYMPH # 2.6 K/mm3 (1.5-4.5); LYMPH % 22.7 % (24.0-44.0); MEAN CORPUSCULAR HEMOGLOBIN 27.5 pg (27.0-33.0); MEAN CORPUSCULAR HGB CONC 32.2 g/dl (32.0-36.5); MEAN CORPUSCULAR VOLUME 85.5 fl (80.0-96.0); MONO # 0.7 K/mm3 (0.0-0.8); MONO % 6.3 % (0.0-5.0); NEUTROPHILS # 7.5 K/mm3 (1.8-7.7); NEUTROPHILS % 68.6 % (36.0-66.0); PLATELET COUNT, AUTOMATED 456 k/mm3 (150-450); RED CELL DISTRIBUTION WIDTH 13.4 % (11.5-14.5); WHITE BLOOD COUNT 10.9 K/mm3 (4.0-10.0)
[2016-10-24 06:30] LABS: ANION GAP 5 MEQ/L (8-16); BLOOD UREA NITROGEN 14 MG/DL (7-18); CALCIUM LEVEL 8.8 MG/DL (8.8-10.2); CARBON DIOXIDE LEVEL 30 MEQ/L (21-32); CHLORIDE LEVEL 104 MEQ/L (98-107); CREATININE FOR GFR 0.93 MG/DL (0.70-1.30); GLOMERULAR FILTRATION RATE > 60.0 (>49); GLUCOSE, FASTING 99 MG/DL (80-110); POTASSIUM SERUM 4.6 MEQ/L (3.5-5.1); SODIUM LEVEL 139 MEQ/L (136-145)
[2016-10-24] MEDS ORDERED: LINE60TAB PO (07:39)
[2016-10-24] MEDS: ENOXAPARIN 40 MG/0.4 ML SYRINGE (J1650) SC SCH (08:28)
[2016-10-24 08:29] VITALS: BP 121/77
[2016-10-24] MEDS: OMEPRAZOLE 20 MG CAP PO SCH (08:29)
[2016-10-24] MEDS: LISINOPRIL 10 MG TAB PO SCH (08:29)
[2016-10-24] MEDS: CHLORHEXIDINE GLUCONATE 0.12 % 15ML UDC (PERIDEX ORAL RINSE) SSP SCH (08:29)
[2016-10-24] MEDS ORDERED: NORCOTAB PO (10:19)
--- NOTE | 2016-10-25 14:41 | DSES ---
DATE OF ADMISSION: 10/20/2016 DATE OF DISCHARGE: 10/24/2016 PRIMARY CARE PROVIDER: Dr. Bertrand Martins DENTAL SURGEON: Dr. Monsivais ENT: Dr. Jimmie Todd DISCHARGE DIAGNOSES: 1. Peritonsillar abscess. 2. Facial cellulitis, status post dental infection and dental extraction. 3. Hypertension. 4. Gastroesophageal reflux disease (GERD). DISCHARGE MEDICATIONS: - Linezolid 600 mg by mouth twice a day - clindamycin 300 mg by mouth four times a day - acetaminophen/hydrocodone one to two tablets by mouth every six hours as needed for pain - ibuprofen 600 mg by mouth four times a day as needed for pain - Lisinopril 10 mg daily - omeprazole 20 mg by mouth daily HOSPITAL COURSE: This is a 61-year-old male who has been having dental infection from the middle of September 2016 and underwent extraction of tooth #[address] Monsivais in oral surgery on 10/13/2016 and discharged from the hospital on 10/15/2016 on clindamycin. After going home, his swelling on the right side of the face and pain continued to increase. He went back to his primary care provider on 10/16/2016. He was given intramuscular antibiotic injection and was then instructed to come back to the emergency room for further injections. He got a total of three doses of intramuscular injections without any improvement. He came back to the emergency room on 10/20/20162016 with intractable pain, difficulty in swallowing, swelling of the right side of the face. The patient was seen by Dr. Quesada from ENT. In the emergency room, the patient had a CT scan of the neck done, which showed right peritonsillar abscess formation, tonsillitis, soft tissue edema in the right parapharyngeal face. Edema and mass effect on the pharyngeal air passage without any airway narrowing. Incision and drainage and aspiration was done by ENT surgeon in the emergency room, and the aspirate was sent for gram stain and culture. Culture subsequently came back as negative. The patient was started on intravenous clindamycin. However, after 7 days of being on clindamycin there was no significant improvement, so vancomycin was added in view of the possibility of clindamycin resistant methicillin resistant Staphylococcus aureus (MRSA). The patient was subsequently also started on dexamethasone. After 24 hours of dexamethasone, the patient had significant improvement in swelling and pain. The patient had a repeat CT scan done after three days, which showed significant improvement in his peritonsillar abscess and swelling. The patient was able to tolerate oral food better with decreased pain and decreased trismus and subsequently the patient was discharged on 10/24/2016 with oral antibiotics. PHYSICAL EXAMINATION: VITAL SIGNS: Temperature 97.2, pulse 53, respiratory rate 16, blood pressure 121/72, pulse oximetry 97% on room air. GENERAL: The patient is awake, alert and oriented times three. Lying down in bed in no acute distress. HEENT: Normocephalic, atraumatic. Moist mucus membranes. Anicteric eyes. CHEST: Clear to auscultation. CARDIOVASCULAR: S1, S2 regular. No rub, murmur or gallop. ABDOMEN: Soft, nontender. Bowel sounds normal. EXTREMITIES: No edema. LABORATORY DATA: WBC 10.9, hemoglobin 12.6, platelets 456. Sodium 139, potassium 4.6, chloride 104, bicarbonate 30, BUN 14, creatinine 0.9, glucose 99, calcium 8.8. Blood cultures negative. DISPOSITION: The patient is discharged home in stable condition. DISCHARGE INSTRUCTIONS: The patient is to followup with ENT surgeon in 10 to 14 days. Patient is to followup with primary care provider in 5 to 7 days. Diet is as tolerated. Activity as tolerated.
--- NOTE | 2016-10-26 11:58 | IPN ---
DATE: 10/26/2016 SUBJECTIVE: The patient feels much better today. The patient can open his mouth better. The swelling of the palate and right tonsillar region is much less. He feels that getting the steroids has really made a difference, as well as antibiotics. Denies any fever or chills. He is able to eat full liquids and semi solids. Denies any cough or shortness of breath. Denies any nausea, vomiting, diarrhea, abdominal pain. PHYSICAL EXAMINATION: VITAL SIGNS: Temperature 97.3, pulse 62, respiratory rate 16, blood pressure 135/77, pulse oximetry 98% on room air. GENERAL: The patient is awake, alert and oriented times three. Lying down in bed in no acute distress. HEENT: Normocephalic, atraumatic. Moist mucous membranes. Anicteric eyes. CHEST: Clear to auscultation. CARDIOVASCULAR: S1, S2 regular. No rub, murmur or gallop. ABDOMEN: Soft, nontender. Bowel sounds present. EXTREMITIES: No edema. LABORATORY DATA: WBC 13.5, hemoglobin 12.6, platelets 470. Sodium 138, potassium 4, chloride 104, bicarbonate 28, BUN 13, creatinine 0.8, glucose 165, calcium 9.1. CT of the neck done shows improvement in the edema and the small collections of air in the right farmworker general and buccinator spaces compared to the previous study. There is still minimal enlargement of the right tonsil and minimal mass effect on the upper oropharynx. There is the presence of edema in the right medial pterygoid, masseter, and buccinator muscles. ASSESSMENT AND PLAN: This is a 61-year-old male admitted for peritonsillar abscess. 1. For peritonsillar abscess, the patient has been seen by ENT and started on dexamethasone. We will continue with that. We will also continue with clindamycin and vancomycin. 2. Hypertension. We will continue with Lisinopril. 3. Deep vein thrombosis (DVT) prophylaxis is in place.
== END 2016-10-24 12:25 | disposition home or self-care (01) | DRG 603 ==
LOC: M ED 03:59 → M ED INP 09:47 → M MS5PR 10:45
PROVIDERS: ADMIT Family Medicine; ATTEND Internal Medicine Nephrology
DX: L03.211 Cellulitis of face (principal); J36 Peritonsillar abscess; I10 Essential (primary) hypertension; K21.9 Gastro-esophageal reflux disease without esophagitis; Z79.899 Other long term (current) drug therapy

== ENCOUNTER → 2016-11-06 | Outpatient (CLI) | payer OTHER ==
[~2016-11-06] MED LIST changes: +IBUP600T26 PO; +IBUP60TA PO; +ISOVUE-370 76% 100ML VIAL (Q9967) As Ordered ONE; +LINE60TAB PO; +NORCOTAB PO
--- NOTE | 2016-11-07 09:28 | REP ---
CT NECK WITH CONTRAST: HISTORY: Abscess. CONTRAST: Isovue 370 75 mL. COMPARISON: 10/23/2016 The tonsils are normal in size. There is minimal enlargement of the right masseter, medial pterygoid and buccinator muscles. The muscles are slightly decreased in size compared to the previous study . Increased density is present in the right parapharyngeal and submandibular spaces. These findings are consistent with edema. The edema is decreased compared to the previous study. A punctate collection of air is present along the lingual surface of the body of the right mandible at the level of the oropharynx. The naso- and hypopharynx, larynx, and subglottic trachea are normal in appearance. The salivary and thyroid glands are normal in size and density. Small lymph nodes less than 1 cm in size are present in the internal jugular chains, posterior triangles, submandibular and submental areas. The patient is status post extraction of the second molar tooth of the right mandible. Degenerative change is present in the cervical spine. The lung apices are clear. The visualized sinuses are clear. IMPRESSION: There is residual edema in the right furnace worker, parapharyngeal and submandibular spaces. This is decreased compared to the previous study. There is no mass effect on the devan- or hypopharynx. Signed by Maxim Nugent MD 11/07/2016 09:38 A
== END ==
LOC: M RAD 17:45
PROVIDERS: ATTEND Physician Assistant Medical
DX: J36 Peritonsillar abscess (principal)

== ENCOUNTER → 2016-11-27 | Outpatient (REF) | payer OTHER ==
[~2016-11-27] MED LIST changes: -ACET65TA PO; +IBUP-1022 PO; +IBUP1TAB6 PO; -IBUP600T26 PO; -IBUP60TA PO; -ISOVUE-370 76% 100ML VIAL (Q9967) As Ordered ONE; +MAPA325T3 PO; -PERC10TA17 PO; +PERC10TA26 PO
== END ==
LOC: M LAB REF 09:42
PROVIDERS: ATTEND Physician Assistant Medical
DX: K12.2 Cellulitis and abscess of mouth (principal)

== ENCOUNTER → 2016-12-15 | Outpatient (REF) | payer OTHER ==
[2016-12-15 16:25] LABS: BASO % 0.5 % (0.0-1.0); EOS # 0.1 K/mm3 (0.0-0.50); EOS % 1.2 % (0.0-3.0); LARGE UNSTAINED CELL # 0.1 K/mm3 (0.0-0.4); LARGE UNSTAINED CELL % 1.3 % (0.0-4.0); LYMPH # 1.5 K/mm3 (1.5-4.5); LYMPH % 19.1 % (24.0-44.0); MEAN CORPUSCULAR HEMOGLOBIN 27.9 pg (27.0-33.0); MEAN CORPUSCULAR HGB CONC 31.8 g/dl (32.0-36.5); MEAN CORPUSCULAR VOLUME 87.8 fl (80.0-96.0); MONO # 0.4 K/mm3 (0.0-0.8); MONO % 4.9 % (0.0-5.0); NEUTROPHILS # 5.2 K/mm3 (1.8-7.7); NEUTROPHILS % 73.1 % (36.0-66.0); PLATELET COUNT, AUTOMATED 275 k/mm3 (150-450); RED CELL DISTRIBUTION WIDTH 14.6 % (11.5-14.5); WHITE BLOOD COUNT 7.1 K/mm3 (4.0-10.0)
[2016-12-15 16:36] LABS: ALBUMIN 3.6 GM/DL (3.2-5.2); ALBUMIN/GLOBULIN RATIO 1.33 (1.00-1.93); ALKALINE PHOSPHATASE 67 U/L (45-117); ALT/SGPT 19 U/L (12-78); ANION GAP 7 MEQ/L (8-16); AST/SGOT 6 U/L (15-37); BILIRUBIN,TOTAL 0.3 MG/DL (0.2-1.0); BLOOD UREA NITROGEN 20 MG/DL (7-18); CALCIUM LEVEL 9.4 MG/DL (8.8-10.2); CARBON DIOXIDE LEVEL 25 MEQ/L (21-32); CHLORIDE LEVEL 106 MEQ/L (98-107); CREATININE FOR GFR 0.88 MG/DL (0.70-1.30); GLOMERULAR FILTRATION RATE > 60.0 (>49); GLUCOSE, FASTING 106 MG/DL (80-110); SODIUM LEVEL 138 MEQ/L (136-145); TOTAL PROTEIN 6.3 GM/DL (6.4-8.2)
[2016-12-15 17:06] LABS: ERYTHROCYTE SEDIMENTATION RATE 7 mm/hr (0-20)
== END ==
LOC: M LABDRAW1 15:53
PROVIDERS: ATTEND Internal Medicine Infectious Disease
DX: R68.84 Jaw pain (principal)

== ENCOUNTER 2017-04-03 11:15 | Emergency (ER) | payer OTHER ==
[~2017-04-03] VITALS: Ht 180.3 cm; Wt 100.9 kg
[2017-04-03] MEDS ORDERED: LISI-542 PO (11:39)
[2017-04-03] MEDS ORDERED: SYMB16INH (11:39)
[2017-04-03] MEDS ORDERED: BACT800T5 PO (14:36)
--- NOTE | 2017-04-03 14:46 | REP ---
NASAL BONE SERIES: 04/03/2017. Clinical history: Trauma. Comparison: Mandible series 12/15/2016 showing a portion of the nose. Findings: Linear lucency at the distal tip of the nasal bones on the lateral views the finding not present on the previous oblique lateral mandible views in November. This suggests a nondisplaced, nondepressed fracture. Nasal spine of the maxilla was intact. Orbital floors were intact. There are no air-fluid levels in the maxillary sinuses. Impression: 1. Linear nondepressed fracture of the distal tip of the nasal bones. No other findings. Signed by Edward Flynn MD 04/03/2017 05:44 P
[2017-04-03 15:02] VITALS: BP 137/73
== END 2017-04-03 15:03 | disposition home or self-care (01) ==
LOC: M ED 11:15
DX: S02.2XXA Fracture of nasal bones, initial encounter for closed fracture (principal); S01.21XA Laceration without foreign body of nose, initial encounter; W01.10XA Fall on same level from slipping, tripping and stumbling with subsequent striking against unspecified object, initial encounter; Y92.099 Unspecified place in other non-institutional residence as the place of occurrence of the external cause; Y93.9 Activity, unspecified; Y99.9 Unspecified external cause status; I10 Essential (primary) hypertension; Z87.891 Personal history of nicotine dependence; Z79.899 Other long term (current) drug therapy; Z88.0 Allergy status to penicillin; Z88.1 Allergy status to other antibiotic agents

== ENCOUNTER → 2017-08-05 | Outpatient (REF) | payer OTHER ==
[2017-08-05 22:38] LABS: INFLUENZA A AMPLIFICATION NEGATIVE (NEGATIVE); INFLUENZA B AMPLIFICATION NEGATIVE (NEGATIVE)
== END ==
LOC: M LAB REF 08-06 09:37
DX: J11.1 Influenza due to unidentified influenza virus with other respiratory manifestations (principal)
CPT/HCPCS: 87502

== ENCOUNTER → 2017-09-20 | Outpatient (CLI) | payer OTHER ==
[2017-09-20 09:24] LABS: HEMATOCRIT 44.8 % (42.0-52.0); MEAN CORPUSCULAR HEMOGLOBIN 26.5 pg (27.0-33.0); MEAN CORPUSCULAR HGB CONC 31.3 g/dl (32.0-36.5); MEAN CORPUSCULAR VOLUME 84.8 fl (80.0-96.0); PLATELET COUNT, AUTOMATED 233 10^3/uL (150-450); RED BLOOD COUNT 5.28 10^6/uL (4.30-6.10); RED CELL DISTRIBUTION WIDTH 13.4 % (11.5-14.5); WHITE BLOOD COUNT 7.2 10^3/uL (4.0-10.0)
[2017-09-20 09:53] LABS: ESTIMATED AVERAGE GLUCOSE 120 MG/DL (60-110); HEMOGLOBIN A1c 5.8 %
[2017-09-20 10:05] LABS: ALBUMIN 3.7 GM/DL (3.2-5.2); ALBUMIN/GLOBULIN RATIO 1.28 (1.00-1.93); ALKALINE PHOSPHATASE 60 U/L (45-117); ALT/SGPT 22 U/L (12-78); ANION GAP 4 MEQ/L (8-16); AST/SGOT 11 U/L (7-37); BILIRUBIN,TOTAL 0.4 MG/DL (0.2-1.0); BLOOD UREA NITROGEN 20 MG/DL (7-18); CALCIUM LEVEL 8.9 MG/DL (8.8-10.2); CARBON DIOXIDE LEVEL 27 MEQ/L (21-32); CHLORIDE LEVEL 110 MEQ/L (98-107); CHOLESTEROL LEVEL 202 MG/DL (<200); CHOLESTEROL RISK RATIO 3.811 (<5); CREATININE FOR GFR 0.85 MG/DL (0.70-1.30); GLOMERULAR FILTRATION RATE > 60.0 (>49); GLUCOSE, FASTING 109 MG/DL (70-100); HDL CHOLESTEROL 53 MG/DL (>40); LDL CHOLESTEROL 99.4 MG/DL (<100); NON-HDL-C 149 MG/DL; POTASSIUM SERUM 4.5 MEQ/L (3.5-5.1); PROSTATIC SPECIFIC AG MONITOR 3.15 NG/ML (< 4.0); SODIUM LEVEL 141 MEQ/L (136-145); TOTAL PROTEIN 6.6 GM/DL (6.4-8.2); TRIGLYCERIDES LEVEL 248 MG/DL (<150)
[2017-09-21 09:38] LABS: TESTOSTERONE 279 NG/DL (241-827)
== END ==
LOC: M LAB 09:01
DX: I10 Essential (primary) hypertension (principal); D64.9 Anemia, unspecified; I44.0 Atrioventricular block, first degree
CPT/HCPCS: 71046

== ENCOUNTER → 2017-12-09 | Outpatient (CLI) | payer OTHER | LOC: M SLEEP HO 14:53 | DX: G47.33 Obstructive sleep apnea (adult) (pediatric) (principal) | CPT/HCPCS: G0399 ==

== ENCOUNTER → 2018-07-28 | Outpatient (REF) | payer OTHER ==
[~2018-07-28] MED LIST changes: +LISI-542 PO; +SYMB16INH
== END ==
LOC: M LAB REF 13:43
PROVIDERS: ATTEND Physician Assistant
DX: J11.1 Influenza due to unidentified influenza virus with other respiratory manifestations (principal)

== ENCOUNTER → 2019-04-06 | Outpatient (CLI) | payer OTHER ==
[~2019-04-06] MED LIST changes: +HYDR-3715 PO; +LINE1TAB PO; -LINE60TAB PO; -NORCOTAB PO; -OMEP20CA3 PO; +OMEP20CA4 PO
--- NOTE | 2019-04-07 02:04 | REP ---
Clinical: Tendonitis . Technique: Internal rotation, external rotation, and Y view right shoulder . Findings: No acute fracture or dislocation. The acromioclavicular and glenohumeral joints are intact. No periarticular calcifications or degenerative changes are appreciated. Sub acromial space is normal. Surrounding soft tissues are unremarkable. Impression: Normal age-appropriate right shoulder radiographs. Electronically Signed by Moise Brown MD 04/07/2019 01:55 A
== END ==
LOC: M RAD 15:38
PROVIDERS: ATTEND Family Medicine
DX: M25.511 Pain in right shoulder (principal)

== ENCOUNTER → 2019-07-11 | Outpatient (CLI) | payer OTHER ==
[~2019-07-11] MED LIST changes: +OMEP1CAP73 PO; -OMEP20CA4 PO
--- NOTE | 2019-07-11 12:18 | REP ---
Clinical: Pain. Technique: AP, lateral, bilateral oblique and sunrise views of the left knee. Findings: Moderate tricompartmental osteoarthritic degenerative changes. Lateral view suggests suprapatellar effusion. No obvious acute fracture or dislocation. Impression: Moderate tricompartmental osteoarthritic changes and suspected effusion. Electronically Signed by Moise Brown MD 07/11/2019 12:10 P
== END ==
LOC: M RAD 11:26
PROVIDERS: ATTEND Family Medicine
DX: M17.12 Unilateral primary osteoarthritis, left knee (principal)

== ENCOUNTER → 2019-12-07 | Outpatient (CLI) | payer OTHER ==
[~2019-12-07] MED LIST changes: +ACET325T42 PO; -MAPA325T3 PO
[2019-12-07 11:46] LABS: HEMOGLOBIN 14.1 g/dl (13.5-17.5); MEAN CORPUSCULAR HEMOGLOBIN 26.6 pg (27.0-33.0); MEAN CORPUSCULAR HGB CONC 30.7 g/dl (32.0-36.5); MEAN CORPUSCULAR VOLUME 86.6 fl (80.0-96.0); PLATELET COUNT, AUTOMATED 232 10^3/uL (150-450); RED BLOOD COUNT 5.31 10^6/uL (4.30-6.10); WHITE BLOOD COUNT 7.5 10^3/uL (4.0-10.0)
[2019-12-07 12:23] LABS: ALBUMIN 3.8 GM/DL (3.2-5.2); ALT/SGPT 20 U/L (12-78); BILIRUBIN,TOTAL 0.6 MG/DL (0.2-1.0); BLOOD UREA NITROGEN 17 MG/DL (7-18); CALCIUM LEVEL 9.4 MG/DL (8.8-10.2); CARBON DIOXIDE LEVEL 27 MEQ/L (21-32); CHLORIDE LEVEL 110 MEQ/L (98-107); CHOLESTEROL LEVEL 193 MG/DL (<200); CHOLESTEROL RISK RATIO 3.938 (<5); CREATININE FOR GFR 0.92 MG/DL (0.70-1.30); GLOMERULAR FILTRATION RATE > 60.0 (>49); GLUCOSE, FASTING 96 MG/DL (70-100); HDL CHOLESTEROL 49 MG/DL (>40); LDL CHOLESTEROL 112 MG/DL (<100); NON-HDL-C 144 MG/DL; POTASSIUM SERUM 4.4 MEQ/L (3.5-5.1); PROSTATIC SPECIFIC AG MONITOR 3.54 NG/ML (< 4.00); SODIUM LEVEL 141 MEQ/L (136-145); TOTAL PROTEIN 6.7 GM/DL (6.4-8.2); TRIGLYCERIDES LEVEL 159 MG/DL (<150)
[2019-12-07 12:26] LABS: TOTAL 25(OH) VITAMIN D 14.1 NG/ML (30.0-100.0)
[2019-12-07 12:27] LABS: TESTOSTERONE 265 NG/DL (241-827)
[2019-12-07 12:36] LABS: HEMOGLOBIN A1c 5.8 %
--- NOTE | 2019-12-07 14:07 | REP ---
REASON: History of hypertension. COMPARISON: Multiple, the latest 09/20/2017. FINDINGS: The superior mediastinal structures are midline. The cardiac silhouette is unremarkable in size, shape, and position. The diaphragmatic surfaces of the lungs are regular, and the costophrenic angles are clear. The pulmonary liu are clear. The imaged osseous structures are intact. IMPRESSION: There is no acute cardiopulmonary disease. Electronically Signed by Donte Richardson DO 12/07/2019 04:08 P
--- NOTE | 2019-12-08 14:54 | ECGEPIP ---
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
== END ==
LOC: M LAB 10:51
PROVIDERS: ATTEND Family Medicine
DX: I10 Essential (primary) hypertension (principal); J44.9 Chronic obstructive pulmonary disease, unspecified; R53.83 Other fatigue; N40.0 Benign prostatic hyperplasia without lower urinary tract symptoms

== ENCOUNTER → 2020-07-13 | Outpatient (CLI) | payer OTHER ==
[~2020-07-13] MED LIST changes: -LISI-542 PO; +LISI-898 PO; +LISI10TA22 PO; -LISI10TA4 PO
[2020-07-17 05:08] LABS: ALPHA 1 ANTITRYPSIN 137 mg/dL (101-187); D001-IgE D pteronyssinus <0.10 kU/L (Class 0); E001-IgE Cat Epith/Dander < 0.10 kU/L (Class 0); E003-IGE HORSE EPITHELIA/DAND <0.10 kU/L (Class 0); E004-IGE COW DANDER <0.10 kU/L (Class 0); E005-IgE Dog Dander < 0.10 kU/L (Class 0); F002-IgE Milk < 0.10 kU/L (Class 0); F004-IgE Wheat < 0.10 kU/L (Class 0); F013-IgE Peanut < 0.10 kU/L (Class 0); F014-IgE Soybean < 0.10 kU/L (Class 0); F026-IgE Pork < 0.10 kU/L (Class 0); F027-IgE Beef < 0.10 kU/L (Class 0); F210-IGE PINEAPPLE <0.10 kU/L (Class 0); F245-IgE Egg, Whole 0.11 kU/L (Class 0/I); FX02-IgE Food Mix (Sea Foods) Negative (.); G002-IgE Bermuda Grass < 0.10 kU/L (Class 0); G008-IgE Kentucky Bluegrass < 0.10 kU/L (Class 0); M001-IgE Penicillium chrysogen < 0.10 kU/L (Class 0); M002 IgE Cladosporium herbaru < 0.10 kU/L (Class 0); M003 IgE Aspergillus fumigatu < 0.10 kU/L (Class 0); M006-IgE Alternaria alternata < 0.10 kU/L (Class 0); T001-IgE Maple/Box Elder < 0.10 kU/L (Class 0); T003-IgE Common Silver Birch < 0.10 kU/L (Class 0); T006-IgE Cedar, Mountain < 0.10 kU/L (Class 0); T007-IgE Oak, White < 0.10 kU/L (Class 0); T008-IgE Elm, American < 0.10 kU/L (Class 0); T015-IgE Ash, White < 0.10 kU/L (Class 0); T041-IgE Hickory, White < 0.10 kU/L (Class 0); T070-IgE White Mulberry < 0.10 kU/L (Class 0); W001-IgE Ragweed, Short < 0.10 kU/L (Class 0); W009-IgE Plantain, English < 0.10 kU/L (Class 0); W014-IgE Pigweed, Rough < 0.10 kU/L (Class 0); W018-IgE Sheep Sorrel < 0.10 kU/L (Class 0)
== END ==
LOC: M LAB 12:54
PROVIDERS: ATTEND Nurse Practitioner Family
DX: J30.2 Other seasonal allergic rhinitis (principal); L27.2 Dermatitis due to ingested food; J44.9 Chronic obstructive pulmonary disease, unspecified; R05 Cough

== ENCOUNTER → 2020-08-13 | Outpatient (CLI) | payer OTHER ==
[2020-08-13 06:35] LABS: HEMATOCRIT 47.2 % (42.0-52.0); HEMOGLOBIN 14.5 g/dl (13.5-17.5); MEAN CORPUSCULAR HEMOGLOBIN 26.4 pg (27.0-33.0); MEAN CORPUSCULAR HGB CONC 30.7 g/dl (32.0-36.5); MEAN CORPUSCULAR VOLUME 85.8 fl (80.0-96.0); PLATELET COUNT, AUTOMATED 223 10^3/uL (150-450); WHITE BLOOD COUNT 4.9 10^3/uL (4.0-10.0)
[2020-08-13 07:00] LABS: HEMOGLOBIN A1c 5.5 %
[2020-08-13 07:09] LABS: ALBUMIN 3.9 GM/DL (3.2-5.2); ALT/SGPT 24 U/L (12-78); BILIRUBIN,TOTAL 0.6 MG/DL (0.2-1.0); BLOOD UREA NITROGEN 21 MG/DL (7-18); CALCIUM LEVEL 9.1 MG/DL (8.8-10.2); CARBON DIOXIDE LEVEL 26 MEQ/L (21-32); CHLORIDE LEVEL 109 MEQ/L (98-107); CHOLESTEROL LEVEL 136 MG/DL (<200); CHOLESTEROL RISK RATIO 3.162 (<5); CREATININE FOR GFR 0.99 MG/DL (0.70-1.30); GLOMERULAR FILTRATION RATE > 60.0 (>49); GLUCOSE, FASTING 88 MG/DL (70-100); HDL CHOLESTEROL 43 MG/DL (>40); LDL CHOLESTEROL 71 MG/DL (<100); NON-HDL-C 93 MG/DL; POTASSIUM SERUM 4.2 MEQ/L (3.5-5.1); PROSTATIC SPECIFIC AG MONITOR 5.24 NG/ML (< 4.00); SODIUM LEVEL 141 MEQ/L (136-145); TOTAL PROTEIN 6.3 GM/DL (6.4-8.2); TRIGLYCERIDES LEVEL 110 MG/DL (<150)
[2020-08-13 09:50] LABS: TESTOSTERONE 339 NG/DL (241-827)
== END ==
LOC: M LAB 06:16
PROVIDERS: ATTEND Family Medicine
DX: E03.9 Hypothyroidism, unspecified (principal); R53.83 Other fatigue; I10 Essential (primary) hypertension

== ENCOUNTER → 2020-11-30 | Outpatient (CLI) | payer MEDICARE, OTHER ==
--- NOTE | 2020-11-30 10:02 | REP ---
INDICATION: BUCHANAN'S W/ DIZZINESS. COMPARISON: None. TECHNIQUE: Helical scanning is acquired. 5 mm axial images were reformatted. Coronal MPR images were generated. FINDINGS: Preliminary digital salt machine operator radiograph is unremarkable. Bone window settings demonstrate intact bony calvarium. Visualized paranasal sinuses are clear. There is an air-fluid level in the ocular globe on the right consistent with treatment for retinal detachment. No other intraorbital abnormality is seen. On soft tissue window settings, the lateral, 3rd, and 4th ventricles are normal in size and position. Quiroz-white differentiation pattern is intact. There is no evidence of intracranial hemorrhage. No infarct, mass, extra-axial fluid collection, or midline shift is seen. IMPRESSION: No acute intracranial abnormality. Incidental note is made of an air-fluid level in the ocular globe on the right consistent with iatrogenic air injection for the treatment of retinal detachment. This should be correlated with the patient's history.. <Electronically signed by Nimesh Eden > 11/30/20 [id number]
== END ==
LOC: M RAD 08:42
PROVIDERS: ATTEND Family Medicine
DX: R51.9 Headache, unspecified (principal); R42 Dizziness and giddiness

== ENCOUNTER → 2021-01-31 | Outpatient (CLI) | payer MEDICARE, OTHER ==
--- NOTE | 2021-01-31 11:02 | REP ---
INDICATION: HTN,FATIGUE, PREOP PT HAS LABS AND EKG FIRST COMPARISON: 12/07/2019. TECHNIQUE: PA/Lateral FINDINGS: Lungs: Clear, no infiltrate. Heart: Normal in size. Mediastinum: Mediastinal silhouette unremarkable. Pleural angles: Unremarkable.. Bones and soft tissues: There are degenerative changes of the spine without compression deformity. IMPRESSION: No acute pulmonary disease. <Electronically signed by Lai Quiroz > 01/31/21 [id number]
[2021-01-31 11:04] LABS: HEMATOCRIT 47.5 % (42.0-52.0); HEMOGLOBIN 14.8 g/dl (13.5-17.5); MEAN CORPUSCULAR HEMOGLOBIN 27.6 pg (27.0-33.0); MEAN CORPUSCULAR HGB CONC 31.2 g/dl (32.0-36.5); MEAN CORPUSCULAR VOLUME 88.5 fl (80.0-96.0); PLATELET COUNT, AUTOMATED 255 10^3/uL (150-450); RED BLOOD COUNT 5.37 10^6/uL (4.30-6.10); WHITE BLOOD COUNT 5.6 10^3/uL (4.0-10.0)
[2021-01-31 11:15] LABS: INR 1.02; PROTHROMBIN TIME 13.8 SECONDS (12.7-14.5)
[2021-01-31 11:43] LABS: ALBUMIN 3.5 GM/DL (3.2-5.2); ALT/SGPT 26 U/L (12-78); BILIRUBIN,TOTAL 0.5 MG/DL (0.2-1.0); BLOOD UREA NITROGEN 20 MG/DL (7-18); CALCIUM LEVEL 9.4 MG/DL (8.8-10.2); CARBON DIOXIDE LEVEL 28 MEQ/L (21-32); CHLORIDE LEVEL 111 MEQ/L (98-107); CHOLESTEROL LEVEL 200 MG/DL (<200); CREATININE FOR GFR 0.82 MG/DL (0.70-1.30); GLOMERULAR FILTRATION RATE > 60.0 (>49); GLUCOSE, FASTING 96 MG/DL (70-100); HDL CHOLESTEROL 50 MG/DL (>40); LDL CHOLESTEROL 113 MG/DL (<100); NON-HDL-C 150 MG/DL; POTASSIUM SERUM 4.5 MEQ/L (3.5-5.1); PROSTATIC SPECIFIC AG MONITOR 2.91 NG/ML (< 4.00); SODIUM LEVEL 143 MEQ/L (136-145); TOTAL PROTEIN 6.3 GM/DL (6.4-8.2); TRIGLYCERIDES LEVEL 186 MG/DL (<150)
[2021-01-31 11:45] LABS: TESTOSTERONE 393 NG/DL (241-827)
[2021-01-31 11:59] LABS: HEMOGLOBIN A1c 5.8 %
--- NOTE | 2021-01-31 22:53 | ECGEPIP ---
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 No remarkable changes Electronically Signed on 01-31-2021 22:53:40 EDT by Gerardo Inman
== END ==
LOC: M LAB 09:43
PROVIDERS: ATTEND Family Medicine
DX: Z01.818 Encounter for other preprocedural examination (principal); I10 Essential (primary) hypertension; R53.83 Other fatigue; E03.9 Hypothyroidism, unspecified; R94.31 Abnormal electrocardiogram [ECG] [EKG]; Z79.899 Other long term (current) drug therapy

== ENCOUNTER → 2021-02-13 | Outpatient (CLI) | payer MEDICARE, OTHER ==
[~2021-02-13] MED LIST changes: +METO25TA4 PO; -SYMB16INH; +SYMB16INH INH
== END ==
LOC: M LABSMTC 09:18
PROVIDERS: ATTEND Anesthesiology
DX: Z01.812 Encounter for preprocedural laboratory examination (principal); Z20.822 Contact with and (suspected) exposure to COVID-19

== ENCOUNTER 2021-02-18 09:09 | Day surgery (SDC) | payer MEDICARE, OTHER ==
[~2021-02-18] VITALS: Ht 182.9 cm; Wt 103.0 kg
[~2021-02-18 09:09] MED LIST changes: +CYCLOPENTOLATE 1% OPHTH SOLN 2 ML BTL OD SCH; +DUOVISC (0.50ML VISCOAT/0.85ML PROVISC) OPHTH KIT As Ordered ONE; +FLURBIPROFEN 0.03% OPHTH SOLN 2.5 ML OD SCH; +LIDOCAINE 1% SDV 5ML VIAL As Ordered ONE; +LR 1,000 ML IV SCH; +PHENYLEPHRINE 2.5% OPHTH SOL 2ML OD SCH; +TETRACAINE 0.5% OPHTH SOLN 4ML OD SCH
[2021-02-18] MEDS ORDERED: MIDAZOLAM INJ 2MG/2ML VIAL (J2250 PER 1MG) As Ordered ONE (09:12)
[2021-02-18] MEDS ORDERED: fentaNYL 100 MCG/2 ML INJECTION (J3010) As Ordered ONE (09:13)
[2021-02-18 13:25] VITALS: BP 130/82
== END 2021-02-18 13:25 | disposition home or self-care (01) ==
LOC: M SDC 09:09
PROVIDERS: ATTEND Ophthalmology
DX: H25.11 Age-related nuclear cataract, right eye (principal); I10 Essential (primary) hypertension; K21.9 Gastro-esophageal reflux disease without esophagitis; J44.9 Chronic obstructive pulmonary disease, unspecified; G47.33 Obstructive sleep apnea (adult) (pediatric); Z79.899 Other long term (current) drug therapy; Z79.52 Long term (current) use of systemic steroids; Z88.0 Allergy status to penicillin; Z88.1 Allergy status to other antibiotic agents
CPT/HCPCS: 66984; J2250; J3010; V2632

== ENCOUNTER → 2021-07-03 | Outpatient (CLI) | payer MEDICARE, OTHER ==
[~2021-07-03] MED LIST changes: -CYCLOPENTOLATE 1% OPHTH SOLN 2 ML BTL OD SCH; -DUOVISC (0.50ML VISCOAT/0.85ML PROVISC) OPHTH KIT As Ordered ONE; -FLURBIPROFEN 0.03% OPHTH SOLN 2.5 ML OD SCH; -LIDOCAINE 1% SDV 5ML VIAL As Ordered ONE; -LISI-898 PO; +LISI5TAB11 PO; -LR 1,000 ML IV SCH; -PHENYLEPHRINE 2.5% OPHTH SOL 2ML OD SCH; -TETRACAINE 0.5% OPHTH SOLN 4ML OD SCH
== END ==
LOC: M LAB 11:39
PROVIDERS: ATTEND Family Medicine
DX: M25.512 Pain in left shoulder (principal)

== ENCOUNTER → 2021-10-30 | Outpatient (CLI) | payer MEDICARE, OTHER | LOC: M LABSMTC 09:31 | PROVIDERS: ATTEND Anesthesiology | DX: Z01.818 Encounter for other preprocedural examination (principal); Z11.52 Encounter for screening for COVID-19 ==

== ENCOUNTER 2021-11-04 06:41 | Day surgery (SDC) | payer MEDICARE, OTHER ==
[~2021-11-04] VITALS: Ht 180.3 cm; Wt 106.1 kg
[~2021-11-04 06:41] MED LIST changes: +LIDOCAINE 2% 100MG/5ML SDV (FOR ANES.) As Ordered ONE; +NS 1,000 ML IV ONE; +propofoL 200 MG/20 ML VIAL As Ordered ONE
[2021-11-04 08:31] VITALS: BP 121/78
== END 2021-11-04 08:30 | disposition home or self-care (01) ==
LOC: M OPP 06:41
PROVIDERS: ATTEND Internal Medicine Gastroenterology
DX: Z12.11 Encounter for screening for malignant neoplasm of colon (principal); D12.6 Benign neoplasm of colon, unspecified; K57.30 Diverticulosis of large intestine without perforation or abscess without bleeding; K64.0 First degree hemorrhoids; Z79.1 Long term (current) use of non-steroidal anti-inflammatories (NSAID); Z79.51 Long term (current) use of inhaled steroids; Z79.899 Other long term (current) drug therapy; Z88.0 Allergy status to penicillin; Z88.1 Allergy status to other antibiotic agents; Z88.8 Allergy status to other drugs, medicaments and biological substances

== ENCOUNTER → 2022-04-09 | Outpatient (CLI) | payer MEDICARE, OTHER ==
[~2022-04-09] MED LIST changes: -LIDOCAINE 2% 100MG/5ML SDV (FOR ANES.) As Ordered ONE; -NS 1,000 ML IV ONE; -propofoL 200 MG/20 ML VIAL As Ordered ONE
[2022-04-09 08:56] LABS: HEMATOCRIT 45.8 % (42.0-52.0); HEMOGLOBIN 14.4 g/dl (13.5-17.5); MEAN CORPUSCULAR HEMOGLOBIN 26.9 pg (27.0-33.0); MEAN CORPUSCULAR HGB CONC 31.4 g/dl (32.0-36.5); MEAN CORPUSCULAR VOLUME 85.6 fl (80.0-96.0); PLATELET COUNT, AUTOMATED 221 10^3/uL (150-450); RED BLOOD COUNT 5.35 10^6/uL (4.30-6.10); WHITE BLOOD COUNT 5.8 10^3/uL (4.0-10.0)
[2022-04-09 09:52] LABS: ALBUMIN 3.9 G/DL (3.2-5.2); ALT/SGPT 24 U/L (7.0-40); BILIRUBIN,TOTAL 0.6 MG/DL (0.3-1.2); BLOOD UREA NITROGEN 23 MG/DL (9-23); CALCIUM LEVEL 9.8 MG/DL (8.3-10.6); CARBON DIOXIDE LEVEL 27 MMOL/L (20-31); CHLORIDE LEVEL 106 MMOL/L (98-107); CHOLESTEROL LEVEL 197 MG/DL (<200); CHOLESTEROL RISK RATIO 4.18 (<5); CREATININE FOR GFR 0.98 MG/DL (0.70-1.30); GLOMERULAR FILTRATION RATE > 60.0 (>49); GLUCOSE, FASTING 116 MG/DL (74-106); HDL CHOLESTEROL 47.1 MG/DL (>40); LDL CHOLESTEROL 113.3 MG/DL (<100); NON-HDL-C 150 MG/DL; POTASSIUM SERUM 4.6 MMOL/L (3.5-5.1); PROSTATIC SPECIFIC AG MONITOR 2.83 NG/ML (< 4.00); RHEUMATOID FACTOR QUANT < 3.5 IU/ML (<14); SODIUM LEVEL 141 MMOL/L (136-145); TESTOSTERONE 233 NG/DL (241-827); THYROID STIMULATING HORMONE 2.379 uIU/ML (0.55-4.78); TOTAL PROTEIN 6.4 G/DL (5.7-8.2); TRIGLYCERIDES LEVEL 183 MG/DL (<150)
[2022-04-09 10:40] LABS: HEMOGLOBIN A1c 5.9 % (4.0-6.0)
[2022-04-10 15:08] LABS: ANTINUCLEAR ANTIBODIES DIRECT Negative (Negative)
== END ==
LOC: M LAB 08:23
PROVIDERS: ATTEND Family Medicine
DX: D64.9 Anemia, unspecified (principal); R53.83 Other fatigue; E03.9 Hypothyroidism, unspecified; Z79.899 Other long term (current) drug therapy; R97.20 Elevated prostate specific antigen [PSA]

== ENCOUNTER → 2022-05-28 | Outpatient (CLI) | payer MEDICARE, OTHER ==
[~2022-05-28] MED LIST changes: +TEST200I14 IM
== END ==
LOC: M LABSMTC 11:15
PROVIDERS: ATTEND Anesthesiology
DX: Z01.812 Encounter for preprocedural laboratory examination (principal); Z20.822 Contact with and (suspected) exposure to COVID-19

== ENCOUNTER 2022-06-02 10:17 | Day surgery (SDC) | payer MEDICARE, OTHER ==
[~2022-06-02] VITALS: Ht 180.3 cm; Wt 109.8 kg
[~2022-06-02 10:17] MED LIST changes: +NS 1,000 ML IV ONE
[2022-06-02] MEDS ORDERED: LIDOCAINE 2% 100MG/5ML SDV (FOR ANES.) As Ordered ONE (11:06)
[2022-06-02] MEDS ORDERED: propofoL 200 MG/20 ML VIAL As Ordered ONE (11:06)
[2022-06-02 12:03] VITALS: BP 138/84
== END 2022-06-02 12:09 | disposition home or self-care (01) ==
LOC: M OPP 10:17
PROVIDERS: ATTEND Internal Medicine Gastroenterology
DX: Z86.010 Personal history of colon polyps (principal); K64.0 First degree hemorrhoids; I10 Essential (primary) hypertension; R73.03 Prediabetes; K21.9 Gastro-esophageal reflux disease without esophagitis; M19.90 Unspecified osteoarthritis, unspecified site; J44.9 Chronic obstructive pulmonary disease, unspecified; G47.30 Sleep apnea, unspecified; Z87.891 Personal history of nicotine dependence; Z88.0 Allergy status to penicillin; Z88.1 Allergy status to other antibiotic agents; Z79.899 Other long term (current) drug therapy

== ENCOUNTER → 2022-10-10 | Outpatient (CLI) | payer MEDICARE, OTHER ==
[~2022-10-10] MED LIST changes: -NS 1,000 ML IV ONE
[2022-10-10 11:33] LABS: COMPLEMENT C3 119.2 MG/DL (90.0-170.0)
[2022-10-10 11:34] LABS: IMMUNOGLOBULIN M 26.7 MG/DL (50-300)
== END ==
LOC: M LAB 09:29
PROVIDERS: ATTEND Allergy & Immunology
DX: R05.3 Chronic cough (principal); J30.2 Other seasonal allergic rhinitis; H10.45 Other chronic allergic conjunctivitis; L27.2 Dermatitis due to ingested food; D80.3 Selective deficiency of immunoglobulin G [IgG] subclasses; I10 Essential (primary) hypertension; E03.9 Hypothyroidism, unspecified; R53.83 Other fatigue; Z79.899 Other long term (current) drug therapy

== ENCOUNTER → 2022-10-10 | Outpatient (CLI) | payer MEDICARE, OTHER ==
[2022-10-10 10:58] LABS: HEMATOCRIT 47.4 % (42.0-52.0); HEMOGLOBIN 14.6 g/dl (13.5-17.5); MEAN CORPUSCULAR HEMOGLOBIN 26.8 pg (27.0-33.0); MEAN CORPUSCULAR HGB CONC 30.8 g/dl (32.0-36.5); PLATELET COUNT, AUTOMATED 224 10^3/uL (150-450); RED BLOOD COUNT 5.45 10^6/uL (4.30-6.10); WHITE BLOOD COUNT 4.9 10^3/uL (4.0-10.0)
[2022-10-10 11:17] LABS: HEMOGLOBIN A1c 5.6 % (4.0-6.0)
[2022-10-10 11:29] LABS: PROSTATIC SPECIFIC AG MONITOR 3.24 NG/ML (< 4.00)
[2022-10-10 11:32] LABS: THYROID STIMULATING HORMONE 1.497 uIU/ML (0.55-4.78)
[2022-10-10 11:33] LABS: TESTOSTERONE 239 NG/DL (241-827); TOTAL 25(OH) VITAMIN D 49.7 NG/ML (20.0-100.0)
[2022-10-10 11:34] LABS: ALBUMIN 3.5 G/DL (3.2-5.2); ALKALINE PHOSPHATASE 49 U/L (46-116); ALT/SGPT 22 U/L (7.0-40); AST/SGOT 10 U/L (<34); BILIRUBIN,TOTAL 0.8 MG/DL (0.3-1.2); BLOOD UREA NITROGEN 20 MG/DL (9-23); CARBON DIOXIDE LEVEL 26 MMOL/L (20-31); CHLORIDE LEVEL 109 MMOL/L (98-107); CHOLESTEROL LEVEL 168 MG/DL (<200); CHOLESTEROL RISK RATIO 3.92 (<5); CREATININE FOR GFR 0.86 MG/DL (0.70-1.30); GLOMERULAR FILTRATION RATE > 60.0 (>49); GLUCOSE, FASTING 108 MG/DL (74-106); HDL CHOLESTEROL 42.8 MG/DL (>40); LDL CHOLESTEROL 99.6 MG/DL (<100); NON-HDL-C 125.2 MG/DL; POTASSIUM SERUM 4.4 MMOL/L (3.5-5.1); SODIUM LEVEL 141 MMOL/L (136-145); TOTAL PROTEIN 5.9 G/DL (5.7-8.2); TRIGLYCERIDES LEVEL 128 MG/DL (<150)
== END ==
LOC: M LAB 09:26
PROVIDERS: ATTEND Family Medicine
DX: I10 Essential (primary) hypertension (principal); E03.9 Hypothyroidism, unspecified; R53.83 Other fatigue

== ENCOUNTER → 2023-02-09 | Outpatient (CLI) | payer MEDICARE, OTHER ==
[2023-02-09 08:10] LABS: HEMATOCRIT 47.3 % (42.0-52.0); HEMOGLOBIN 14.8 g/dl (13.5-17.5); MEAN CORPUSCULAR HEMOGLOBIN 27.3 pg (27.0-33.0); MEAN CORPUSCULAR HGB CONC 31.3 g/dl (32.0-36.5); MEAN CORPUSCULAR VOLUME 87.1 fl (80.0-96.0); PLATELET COUNT, AUTOMATED 224 10^3/uL (150-450); RED BLOOD COUNT 5.43 10^6/uL (4.30-6.10); WHITE BLOOD COUNT 6.3 10^3/uL (4.0-10.0)
[2023-02-09 08:20] LABS: HEMOGLOBIN A1c 5.2 % (4.0-6.0)
[2023-02-09 08:49] LABS: ALBUMIN 3.6 G/DL (3.2-5.2); ALKALINE PHOSPHATASE 49 U/L (46-116); ALT/SGPT 26 U/L (7.0-40); AST/SGOT 10 U/L (<34); BILIRUBIN,TOTAL 0.7 MG/DL (0.3-1.2); BLOOD UREA NITROGEN 14 MG/DL (9-23); CALCIUM LEVEL 9.2 MG/DL (8.3-10.6); CARBON DIOXIDE LEVEL 28 MMOL/L (20-31); CHLORIDE LEVEL 107 MMOL/L (98-107); CHOLESTEROL LEVEL 186 MG/DL (<200); CHOLESTEROL RISK RATIO 3.54 (<5); GLOMERULAR FILTRATION RATE > 60.0 (>49); GLUCOSE, FASTING 121 MG/DL (74-106); HDL CHOLESTEROL 52.4 MG/DL (>40); LDL CHOLESTEROL 101.4 MG/DL (<100); NON-HDL-C 133.6 MG/DL; POTASSIUM SERUM 4.7 MMOL/L (3.5-5.1); PROSTATIC SPECIFIC AG MONITOR 4.68 NG/ML (< 4.00); SODIUM LEVEL 142 MMOL/L (136-145); TESTOSTERONE 333 NG/DL (241-827); THYROID STIMULATING HORMONE 2.387 uIU/ML (0.55-4.78); TOTAL 25(OH) VITAMIN D 48.4 NG/ML (20.0-100.0); TOTAL PROTEIN 6.1 G/DL (5.7-8.2); TRIGLYCERIDES LEVEL 161 MG/DL (<150)
== END ==
LOC: M LAB 07:49
PROVIDERS: ATTEND Family Medicine
DX: I10 Essential (primary) hypertension (principal); D64.9 Anemia, unspecified; R53.83 Other fatigue; Z79.899 Other long term (current) drug therapy; R97.20 Elevated prostate specific antigen [PSA]

== ENCOUNTER → 2024-06-16 | Outpatient (CLI) | payer MEDICARE, OTHER | LOC: M RAD 15:03 | PROVIDERS: ATTEND Family Medicine | DX: M25.511 Pain in right shoulder (principal); W19.XXXA Unspecified fall, initial encounter; Y92.9 Unspecified place or not applicable ==

== ENCOUNTER → 2024-07-25 | Outpatient (CLI) | payer MEDICARE, OTHER | LOC: M PLAIMG 12:00 | PROVIDERS: ATTEND Neuromusculoskeletal Medicine, Sports Medicine | DX: M75.101 Unspecified rotator cuff tear or rupture of right shoulder, not specified as traumatic (principal); S46.011A Strain of muscle(s) and tendon(s) of the rotator cuff of right shoulder, initial encounter ==

== ENCOUNTER 2024-08-26 14:07 | Emergency (ER) | payer MEDICARE, OTHER ==
[~2024-08-26] VITALS: Ht 180.3 cm; Wt 108.7 kg
[2024-08-26 14:10] VITALS: TEMP 97.2
[2024-08-26] MEDS ORDERED: MECL-136 (14:17)
[2024-08-26] MEDS ORDERED: DOXY100C3 (14:17)
[2024-08-26] MEDS ORDERED: MELO15TA28 (14:17)
[2024-08-26] MEDS ORDERED: APAP325T4 PO (14:17)
[2024-08-26 17:35] VITALS: BP 164/84; O2SAT 98
[2024-08-26] MEDS ORDERED: CVS1CAP2 PO (18:00)
[2024-08-26] MEDS ORDERED: ANBE20GE TOP (18:00)
[2024-08-26] MEDS ORDERED: CLIN-250 PO (18:00)
== END 2024-08-26 18:08 | disposition home or self-care (01) ==
LOC: M ED 14:07
DX: K02.9 Dental caries, unspecified (principal); K08.89 Other specified disorders of teeth and supporting structures; I10 Essential (primary) hypertension; K21.9 Gastro-esophageal reflux disease without esophagitis; J44.9 Chronic obstructive pulmonary disease, unspecified; Z88.0 Allergy status to penicillin; Z88.1 Allergy status to other antibiotic agents; Z88.8 Allergy status to other drugs, medicaments and biological substances; Z79.1 Long term (current) use of non-steroidal anti-inflammatories (NSAID); Z79.899 Other long term (current) drug therapy

== ENCOUNTER 2024-09-27 13:09 | Emergency (ER) | payer MEDICARE, OTHER ==
[~2024-09-27] VITALS: Ht 180.3 cm; Wt 107.7 kg
[~2024-09-27 13:09] MED LIST changes: +ANBE20GE TOP; +APAP325T4 PO; +CLIN-250 PO; +CVS1CAP2 PO; +DOXY100C3; +MECL-136; +MELO15TA28
[2024-09-27 13:50] LABS: BASO # 0.1 10^3/uL (0.0-0.2); BASO % 0.5 % (0.0-1.0); EOS # 0.1 10^3/uL (0.0-0.5); EOS % 0.8 % (0.0-3.0); HEMATOCRIT 45.5 % (42.0-52.0); HEMOGLOBIN 14.2 g/dl (13.5-17.5); LYMPH # 1.6 10^3/uL (1.5-5.0); LYMPH % 14.7 % (24.0-44.0); MEAN CORPUSCULAR HEMOGLOBIN 27.5 pg (27.0-33.0); MEAN CORPUSCULAR HGB CONC 31.2 g/dl (32.0-36.5); MONO % 8.7 % (2.0-8.0); NEUTROPHILS # 8.2 10^3/uL (1.5-8.5); NEUTROPHILS % 74.9 % (36.0-66.0); PLATELET COUNT, AUTOMATED 221 10^3/uL (150-450); RED BLOOD COUNT 5.17 10^6/uL (4.30-6.10); WHITE BLOOD COUNT 10.9 10^3/uL (4.0-10.0)
[2024-09-27 14:11] LABS: INR 1.01; PARTIAL THROMBOPLASTIN TIME 27.6 SECONDS (24.8-34.2); PROTHROMBIN TIME 13.6 SECONDS (12.5-14.5)
[2024-09-27 14:22] LABS: ALKALINE PHOSPHATASE 48 U/L (40-129); ALT/SGPT 22 U/L (7.0-40); AST/SGOT 13 U/L (<34); BILIRUBIN,DIRECT 0.2 MG/DL (<0.4); BILIRUBIN,TOTAL 0.6 MG/DL (0.3-1.2); BLOOD UREA NITROGEN 25 MG/DL (9-23); CALCIUM LEVEL 9.9 MG/DL (8.3-10.6); CARBON DIOXIDE LEVEL 25 MMOL/L (20-31); CHLORIDE LEVEL 108 MMOL/L (98-107); CK-MB VALUE MASS < 1.0 NG/ML (<3.6); CREATININE FOR GFR 0.89 MG/DL (0.70-1.30); GLOMERULAR FILTRATION RATE > 90.0 (>49); GLUCOSE, FASTING 94 MG/DL (74-106); POTASSIUM SERUM 4.9 MMOL/L (3.5-5.1); SODIUM LEVEL 140 MMOL/L (136-145); TOTAL PROTEIN 6.4 G/DL (5.7-8.2)
[2024-09-27 14:23] LABS: FREE T4 1.62 NG/DL (0.89-1.76); THYROID STIMULATING HORMONE 1.784 uIU/ML (0.55-4.78)
[2024-09-27 14:24] LABS: CPK CREATINE PHOSPHOKINASE 60 U/L (46-171); MB/CK RELATIVE INDEX 1.66 (< OR =4)
[2024-09-27] MEDS ORDERED: ISOVUE-370 76% 100ML VIAL As Ordered ONE (15:07)
[2024-09-27 15:22] LABS: CK-MB VALUE MASS < 1.0 NG/ML (<3.6)
[2024-09-27 15:24] LABS: CPK CREATINE PHOSPHOKINASE 60 U/L (46-171); MB/CK RELATIVE INDEX 1.66 (< OR =4)
[2024-09-27 16:24] LABS: SOFIA COVID ANTIGEN NEGATIVE (NEGATIVE)
[2024-09-27] MEDS: ESMOLOL HCL 2,000 MG in IV 1 EA IV SCH (17:21)
[2024-09-27 18:05] VITALS: BP 137/66
[2024-09-27 18:06] VITALS: TEMP 97.8; O2SAT 95
[2024-09-27] MEDS ORDERED: ESMOLOL HCL 2,000 MG in IV 1 EA IV SCH (18:30)
== END 2024-09-27 18:06 | disposition short-term general hospital (02) ==
LOC: M ED 13:09
DX: I71.20 Thoracic aortic aneurysm, without rupture, unspecified (principal); R07.9 Chest pain, unspecified; I10 Essential (primary) hypertension; K21.9 Gastro-esophageal reflux disease without esophagitis; J44.9 Chronic obstructive pulmonary disease, unspecified; Z87.891 Personal history of nicotine dependence; Z88.0 Allergy status to penicillin; Z88.1 Allergy status to other antibiotic agents; Z79.899 Other long term (current) drug therapy; Z79.1 Long term (current) use of non-steroidal anti-inflammatories (NSAID)
CPT/HCPCS: 71045; 71275; 80048; 80076; 82550; 82553; 83880; 84439; 84443; 84484; 85025; 85610; 85730; 86850; 86900; 86901; 87428; 93005; 93041; 94760; 96365; 99291; J1805; Q9967

== ENCOUNTER → 2025-02-09 | Outpatient (CLI) | payer MEDICARE, OTHER ==
[~2025-02-09] MED LIST changes: -IBUP-1022 PO; -IBUP1TAB6 PO; +IBUP600T42 PO; +SFHIBU600 PO
[2025-02-09 19:18] LABS: CALCIUM LEVEL 9.8 MG/DL (8.3-10.6); CARBON DIOXIDE LEVEL 24.0 MMOL/L (20-31); CHLORIDE LEVEL 108.0 MMOL/L (98-107); CREATININE FOR GFR 0.94 MG/DL (0.70-1.30); GLOMERULAR FILTRATION RATE 87.8 (>49); POTASSIUM SERUM 4.0 MMOL/L (3.5-5.1); SODIUM LEVEL 140.0 MMOL/L (136-145)
== END ==
LOC: M LAB 16:51
DX: I31.9 Disease of pericardium, unspecified (principal); I48.91 Unspecified atrial fibrillation

== ENCOUNTER → 2025-02-13 | Outpatient (CLI) | payer MEDICARE, OTHER ==
[~2025-02-13] MED LIST changes: +ISOVUE-370 76% 100 ML VIAL ONE
== END ==
LOC: M PLAIMG 14:08
DX: I48.91 Unspecified atrial fibrillation (principal); Z98.890 Other specified postprocedural states; K76.0 Fatty (change of) liver, not elsewhere classified; M47.814 Spondylosis without myelopathy or radiculopathy, thoracic region; K76.89 Other specified diseases of liver
CPT/HCPCS: 71275; Q9967

== ENCOUNTER → 2025-04-05 | Outpatient (CLI) | payer MEDICARE, OTHER ==
[~2025-04-05] MED LIST changes: -ISOVUE-370 76% 100 ML VIAL ONE
== END ==
LOC: M WUC 13:38
PROVIDERS: ATTEND Nurse Practitioner Family
DX: J30.2 Other seasonal allergic rhinitis (principal)

== ENCOUNTER → 2025-04-07 | Outpatient (CLI) | payer MEDICARE, OTHER | LOC: M SOG 07:36 | PROVIDERS: ATTEND Neuromusculoskeletal Medicine, Sports Medicine | DX: S46.011A Strain of muscle(s) and tendon(s) of the rotator cuff of right shoulder, initial encounter (principal) ==

== ENCOUNTER → 2025-04-10 | Outpatient (CLI) | payer MEDICARE, OTHER | LOC: M SOG 07:39 | PROVIDERS: ATTEND Neuromusculoskeletal Medicine, Sports Medicine | DX: M19.011 Primary osteoarthritis, right shoulder (principal) ==

== ENCOUNTER → 2025-05-08 | Outpatient (REF) | payer MEDICARE, OTHER | LOC: M LAB REF 12:19 | PROVIDERS: ATTEND Physician Assistant Medical | DX: E29.1 Testicular hypofunction (principal) ==